=== PATIENT | male | born 1935 | race Caucasian/White ===

== ENCOUNTER 2018-07-31 10:07 | Observation (INO) | payer MEDICARE, BC ==
[2018-07-31] MEDS ORDERED: Diazepam TAB(*) 5 MG ONE (10:56)
[2018-07-31] MEDS ORDERED: diPHENhydraMINE PO* 25 MG ONE (10:56)
[2018-07-31] MEDS ORDERED: Heparin(*) 1000 UNIT/ML 10 ML VIAL CATH LAB IV ONE (11:54)
[2018-07-31] MEDS ORDERED: Midazolam* 1 MG/ML 10 ML VIAL (10 MG) ONE (11:54)
[2018-07-31] MEDS ORDERED: VERAPAMIL 2.5 MG/ML 2 ML VIAL ** 5 mg/2 ml ONE (11:54)
[2018-07-31] MEDS ORDERED: fentaNYL* 50 MCG/ML 2 ML VIAL (100 MCG VIAL) ONE (11:54)
[2018-07-31] MEDS ORDERED: Iohexol 350 (CONTRAST) 200 ML MDV IV ONE ×2 (11:55→12:43)
[2018-07-31] MEDS ORDERED: nitroGLYCERIN DRIP* 25,000 MCG/250 ML BTL ONE (11:55)
[2018-07-31] MEDS ORDERED: Lidocaine 1% INJ* 10 MG/ML 30 ML SDV ONE (11:55)
[2018-07-31] MEDS ORDERED: Heparin 2 UNITS/ML IVPREMIX* 2,000 ML IV ONE (11:55)
[2018-07-31] MEDS ORDERED: Ticagrelor* 90 MG TAB PO ONE (12:45)
[2018-07-31] MEDS ORDERED: Bivalirudin(*) 250 MG VIAL ONE (12:51)
[2018-07-31] MEDS ORDERED: Ondansetron INJ* 2 MG/ML VIAL IV PRN (13:14)
[2018-07-31] MEDS ORDERED: Nitroglycerin TAB 0.4 MG* 0.4 MG TAB SL PRN (13:14)
[2018-07-31] MEDS ORDERED: Docusate CAP* 100 MG PO PRN (13:14)
[2018-07-31] MEDS ORDERED: Acetaminophen TAB* 325 MG PO PRN (13:14)
[2018-07-31] MEDS ORDERED: NS 0.9% 1000 ML* 400 ML IV SCH (13:15)
[2018-07-31] MEDS ORDERED: Ferrous Gluconate TAB* 324 MG TAB PO SCH (14:00)
[2018-07-31] MEDS ORDERED: Docusate CAP* 100 MG PO SCH (18:00)
[2018-07-31] MEDS ORDERED: Citalopram TAB* 10 MG PO SCH (18:00)
[2018-07-31] MEDS: Ticagrelor* 90 MG TAB PO SCH (20:42)
[2018-07-31] MEDS ORDERED: Citalopram TAB* 20 MG PO SCH (21:00)
--- NOTE | 2018-07-31 21:08 | CATH ---
CC: Shiv Chamorro DO, [facility], [facility]; An Dela Cruz MD * INTERVENTIONAL REPORT: DATE OF PROCEDURE: 07/31/18 - ROOM #ICU-12 PROCEDURE AND INDICATION: Primary stenting of the proximal right-sided posterior descending artery utilizing a 3.0 x 16 mm long Synergy drug-eluting stent postdilated to 3.2 mm due to progressive angina pectoris and abnormal stress test despite dual antianginal therapy. I was asked by Dr. Giovanny Johnston who performed the diagnostic cardiac catheterization to perform intervention into the patient's proximal portion of his right posterior descending artery due to the presence of critical stenosis with history of progressive angina pectoris despite multidrug therapy. EQUIPMENT UTILIZED: (Dr. Johnston had performed the diagnostic cardiac catheterization via the right radial artery and an existing 6-Salvadorean sheath was already in place). 1. A guide catheter - 6-Salvadorean IR 1.0 curve guide catheter. 2. Interventional wire - 190 cm BMW. 3. Stent utilized: A 3.0 x 16 mm Synergy drug-eluting stent. 4. Postdeployment balloon inflation catheter - a 3.0 x 12 mm long NC Emerge balloon. ADDITIONAL MEDICATION GIVEN FOR THE INTERVENTIONAL PROCEDURE: ACT was checked and found to be subtherapeutic. As such, an Angiomax bolus and an Angiomax drip was started. The patient received 180 mg of Brilinta orally and already had been on aspirin 81 mg a day for a prolonged period of time and did take it this morning. DESCRIPTION OF PROCEDURE: Guiding views were obtained utilizing the Heartrail III 6-Salvadorean IR 1.0 curve guide catheter. A BMW wire was advanced down the right coronary artery into the distal portion of the right-sided posterior descending artery. Primary stenting was performed utilizing a 3.0 x 16 mm long Synergy drug- eluting stent postdilated to high pressure utilizing a 3.0 x12 mm long NC Emerge balloon. The artery was then assessed in multiple views. At the end of the case, the wire and catheter were removed and hemostasis was obtained with a VascBand. The reverse Barbeau was an A. The total contrast used for the whole case was 135 cc of Omnipaque dye that included the diagnostic portion as well. The radiation exposure included 15.9 minutes of fluoro time. The air kerma radiation was 1601 milligray. The DAP radiation was 9223 microgray per meter square. RESULTS: INTERVENTION INTO PROXIMAL RIGHT POSTERIOR DESCENDING ARTERY - successful reduction of critical 85% stenosis with primary stenting utilizing the 3.0 x 16 mm Synergy drug-eluting stent dilated to high pressures to obtain 3.2 mm with CUAUHTEMOC-3 flow, no dissection seen and less than 5% residual stenosis. A dual antiplatelet therapy is recommended for a minimum of 6 months ' to a year's time. Aggressive risk factor management will be under the guidance of Dr. Shiv Chamorro, the patient's primary vocational technical education teacher. [id number]/[facility] #: [id number] ANNALISA
--- NOTE | 2018-08-01 00:21 | CATH ---
CC: Dr. Shiv Chamorro; Dr. James Ochoa * CARDIAC CATHETERIZATION REPORT: DATE OF PROCEDURE: 07/31/18 - ROOM #ICU-12 PROCEDURE: Cardiac catheterization including left heart catheterization, left ventriculogram, coronary angiography. INDICATION: Crescendo angina, maximum medical therapy, equivocal stress test. HISTORY: The patient is an 83-year-old gentleman who has been having crescendo angina for a number of months. The patient underwent a stress test with Dr. Chamorro which was difficult to interpret because of significant gut attenuation. The patient has been on maximum medical therapy for a couple of weeks with no change in his symptoms. Cardiac catheterization was recommended. DESCRIPTION OF PROCEDURE: The patient was brought to the cardiac catheterization lab in a fasting state. Informed consent had been obtained prior to the procedure, all labs had been reviewed. The patient was placed supine on the catheterization table. The right radial area was prepped and draped in the usual fashion. 1% lidocaine was used for local anesthesia. The right radial artery was prepped and draped in the usual fashion. The radial artery was entered by a modified Seldinger technique and a 6-Omani sheath introducer was placed. The patient underwent left ventriculogram coronary angiography using a 6-Omani pigtail catheter and 6-Omani TIG catheter. At the end of the procedure, the patient went on to angioplasty and stenting of his right coronary artery. Please see Dr. Ochoa's note regarding that procedure. A total of 85 cc of Omnipaque dye was used, a total of 8.3 minutes of fluoro time was used. FINDINGS: Hemodynamics: Central aortic blood pressure 123/54 with a mean of 82. Left ventricular pressure 126/3 with an end-diastolic pressure of 20. Left ventriculogram: Left ventricle is normal in size with systolic function. Estimated ejection fraction was 60%. There was no mitral regurgitation. Aortic valve was normal. Ascending aorta was mildly dilated at 3.9 cm. CORONARY ARTERIES: 1. Right coronary artery: The RCA was a large dominant vessel giving off to the PDA and a posterolateral branch. The RCA and the posterolateral branch were without disease. The PDA had a proximal 90% stenosis. 2. Left main artery: The left main was very short and quickly bifurcated into LAD and circumflex. There was no evidence of stenosis. 3. Left anterior descending artery: The LAD was normal in size. It gave off 3 diagonal vessels. The distal LAD had 40% stenosis. The diagonal 1, 2, and 3 were without disease. 4. Left circumflex artery: The circumflex artery was normal in size. It gave off 3 obtuse marginal branches. There was no evidence of stenosis. IMPRESSION: 1. Normal LV size and systolic function. 2. Mildly to moderately dilated ascending aorta. 3. 90% stenosis to the proximal PDA. RECOMMENDATION: The patient will undergo angioplasty and stenting of his right coronary artery. [id number]/[facility] #: [id number] ANNALISA
[2018-08-01 05:56] LABS: ABS Basophils 0 10^3/ul (0-0.2); ABS Eosinophils 0.1 10^3/ul (0-0.6); ABS Lymphocytes 0.7 10^3/ul (1.0-4.8); ABS Monocytes 0.5 10^3/ul (0-0.8); ABS Neutrophils 4.7 10^3/ul (1.5-7.7); ABS Nucleated RBC 0 10^3/ul; Eosinophil % 1.8 %; Hematocrit 41 % (42-52); Hemoglobin 13.7 g/dl (14.0-18.0); Lymphocyte % 12.2 %; Mean Corpuscular HGB Conc 33 g/dl (31-36); Mean Corpuscular Hemoglobin 30 pg (27-31); Mean Corpuscular Volume 91 fL (80-94); Mean Platelet Volume 7.4 fL (7.4-10.4); Nucleated Red Blood Cells % 0; Platelet Count 159 10^3/ul (150-450); Red Blood Count 4.52 10^6/ul (4.00-5.40); Red Cell Distribution Width 14 % (10.5-15); White Blood Count 6.1 10^3/ul (3.5-10.8)
[2018-08-01] MEDS ORDERED: Levothyroxine TAB* 75 MCG TAB PO SCH (06:00)
[2018-08-01 06:13] LABS: BUN/Creatinine Ratio 15.2 (8-20); Calcium 9.2 mg/dL (8.6-10.3); EGFR Non-African American 62.8 (>60); HDL Cholesterol 63.6 mg/dL; Potassium 4.1 mmol/L (3.5-5.0)
[2018-08-01] MEDS ORDERED: BuPROPion XL* 300 MG TAB.XL PO SCH (09:00)
[2018-08-01] MEDS ORDERED: Isosorbide Mononitrate ER TAB* 30 MG PO SCH (09:00)
[2018-08-01] MEDS ORDERED: Aspirin EC TAB* 81 MG TAB.EC PO SCH (09:00)
[2018-08-01] MEDS ORDERED: amLODIPine TAB* 5 MG PO SCH (09:00)
[2018-08-01] MEDS ORDERED: Atorvastatin* 20 MG TAB PO SCH (09:00)
[2018-08-01] MEDS ORDERED: Ascorbic Acid TAB* 500 MG PO SCH (09:00)
[2018-08-01] MEDS: Ticagrelor* 90 MG TAB PO SCH (09:02)
[2018-08-01 09:12] VITALS: BP 119/61
--- NOTE | 2018-08-01 14:59 | DS ---
DISCHARGE SUMMARY: DATE OF ADMISSION: 07/31/18 DATE OF DISCHARGE: Tentative date of discharge pending no complications, . ATTENDING PHYSICIAN: Dr. Giovanny Johnston, Cardiology * (dictated by Orquidea Mattson , Cardiology STRAW HAT PRESSER). ADMITTING DIAGNOSES: 1. Abnormal stress test with symptomatology consistent with [place] Cardiovascular Society class III angina despite medical therapy, here for elective cardiac catheterization. 2. Presumed coronary artery disease; on aspirin, statin, Norvasc, Imdur therapy. No beta-blockade therapy due to relative bradycardia. 3. History of hyperlipidemia, on statin therapy; goal LDL less than 70. 4. History of syncope and collapse with hypotension/unable to up-titrate amlodipine at this current time. DISCHARGE DIAGNOSES: 1. [place] Cardiovascular Society class III angina with abnormal stress test, 08/06/17, status post drug-eluting stent placement to patent ductus arteriosus; on aspirin 81 mg a day, Brilinta 90 mg p.o. b.i.d., Lipitor 20 mg p.o. q.h.s., Norvasc 2.5 mg p.o. daily, and Imdur therapy. 2. History of coronary artery disease; on aspirin, statin, Brilinta and aspirin therapy. No beta-blockade therapy due to history of relative bradycardia. 3. History of hyperlipidemia, on Lipitor 20 mg p.o. q.h.s. Goal LDL is less than 70. To follow up with Dr. Shiv Chamorro for medication management. 4. History of syncope, unable to up-titrate Norvasc therapy at this current time. PROCEDURES PERFORMED: The patient had a left heart catheterization performed on 07/31/[address] James Ochoa. A 6-Tamazight sheath catheter was previously placed by Dr. Johnston via right radial artery. Left main normal. LAD mid 40% lesion. Left circumflex normal. Right coronary artery proximal PDA 90% stenosis. The patient underwent 3.0 x 16 mm Synergy drug-eluting stent to PDA. Complications, none thus far. HISTORY OF PRESENT ILLNESS: This is a pleasant 83-year-old male, patient of Dr. Shiv Chamorro, who has been previously evaluated in our practice due to complains of exertional chest pain involving lifting bags in addition to exertion. He underwent risk stratification on 06/06/18 via Lexiscan nuclear stress test due to inability to utilize treadmill due to underlying mobility problems. The patient developed chest discomfort with regadenoson. There was mild worsening of baseline ST segment depression with higher heart rate. There was nondiagnostic imaging limited by extensive subdiaphragmatic tracer activity. Stress images revealed moderate-sized, mild-intensity inferior and inferoapical defect of uncertain etiology. He was initiated on medical therapy for presumed cardiovascular disease; however, he continued to have CCS class 3 angina despite medical therapy. Given relative bradycardia and tendency for symptomatic hypotension, there has resulted in syncope in the past, he presented to [facility] on 07/31/18 for elective cardiac catheterization. Prior to having procedure performed, basic blood work was obtained on 07/25/18, white count was 2.9, hemoglobin 12.7, hematocrit 39, platelets 159. INR 0.98. Sodium 141, potassium 4.3, creatinine 1.1. He underwent the above mentioned procedure which resulted in drug-eluting stent placement to PDA. He was imitated on Brilinta 90 mg p.o. b.i.d. in addition to medication regimen that was previously initiated by Dr. Shiv Chamorro. He was evaluated in the ICU overnight. There has been no complications. He has been getting up to the bathroom with complaints of slight lightheadedness, although no syncope. He admits to changing position suddenly. Thus, we will ask the nursing staff to ambulate the patient this morning and evaluate for symptomatic hypotension. He has no tendency for symptomatic hypotension. His right radial axis site was inspected. He has 3+ bilateral radial pulse palpated. Cap refill is less than 3 seconds. There is ecchymosis surrounding the right radial site. It is nontender to palpation. No area of firmness noted. Blood work this morning: White count 6.1, hemoglobin 13.7, hematocrit 41, platelets 159. Sodium 138, potassium 4.1, creatinine 1.1. He is tolerating current medication therapy with no events on telemetry. Pending no complications and his ambulatory status, we will tentatively discharge home later today. DISCHARGE DIET: Low-cholesterol, low-fat diet. ACTIVITY: No driving for 48 hours. No lifting more than 5 to 10 pounds for 7 to 10 days. FOLLOWUP APPOINTMENTS: The patient is to follow up with Dr. Shiv Chamorro as previously instructed on 08/09/18 at 8:15 a.m. He is to follow up with primary care, Dr. An Dela Cruz, in 10 to 14 days. Discharge blood work to be obtained: None. We will send in prescription for Brilinta 90 mg p.o. b.i.d. to [facility], on [address]; otherwise he is to resume prior medications. Dr. Giovanny Johnston agrees with the above assessment and plan. ORQUIDEA MATTSON NP [id number]/[facility] #: [id number] ANNALISA
== END 2018-08-01 10:50 | disposition home or self-care (01) ==
LOC: CHICATH 10:07 → INTOOBSV 13:14 → ICU 13:14
PROVIDERS: ADMIT Internal Medicine Cardiovascular Disease; ATTEND Specialist
DX: I20.9 Angina pectoris, unspecified (principal); E78.5 Hyperlipidemia, unspecified; R55 Syncope and collapse; I25.10 Atherosclerotic heart disease of native coronary artery without angina pectoris; Z79.82 Long term (current) use of aspirin; R07.9 Chest pain, unspecified; R63.6 Underweight; F32.89 Other specified depressive episodes; K59.00 Constipation, unspecified
CPT/HCPCS: 36415; 80048; 80061; 85025; 85347; 87641; 93005; 93458; 96374; 96375; 99156; 99157; A9270-GY; C1769; C1876; C9600-RC; G0378; J0583; J1644; J2250; J3010

== ENCOUNTER 2018-11-12 13:32 | Emergency (ER) | payer MEDICARE, BC ==
--- OUTSIDE RECORDS SUMMARY | 2018-11-12 13:47 | XMS REPORT | Continuity of Care Document ---
:1935 External Reference #:[id number] Author Name Justine Gillette Care Team Providers Name Role Phone An Dela Cruz MD Care Team Information Abrasive Band Winder Unavailable An Dela Cruz MD Primary Care Physician Unavailable Payers Date Identification Numbers Payment Provider Subscriber Policy Number: [id number] Medicare [place] Seth Simpson Raymond PayID: [id number] [address] [place] [address] Expires: 2013 Policy Number: [id number] Medicare Dme Seth Simpson Chary PayID: [id number] [address] [place] [address] Policy Number: [id number] BC/[place] Seth Simpson Raymond Group Number: [id number] [address] [address] PayID: [id number] AMOL Fisher [id number] Advance Directives Description No Information Available Problems Date Description Provider Status Onset: 07/06/2016 Epiretinal membrane Samuel Mccray M.D. Active Onset: 07/01/2015 Open-angle glaucoma - borderline Dayo Conklin O.D. Active Onset: 06/28/2014 Lens Replaced By Other Means Dayo Conklin O.D. Active Onset: 06/28/2014 Dystrophy of anterior cornea Dayo Conklin O.D. Active Onset: 06/28/2014 Presbyopia Dayo Conklin O.D. Active Onset: 06/28/2014 Vitreous degeneration Dayo Conklin O.D. Active Onset: 06/28/2014 Degeneration of macula due to cyst, Dayo Conklin O.D. Active hole or pseudohole Onset: 12/27/2013 Borderline glaucoma Dayo Conklin O.D. Active Family History Date Family Member(s) Observation Comments Father Heart Disease pacemaker Father due to Pneumonia () Father Glasses Mother due to Pneumonia () Mother Glaucoma Mother Glasses Mother Arthritis Mother Thyroid Disease Social History Type Date Description Comments Sex Unknown ETOH Use Occasionally consumed alcohol in the past Tobacco Use Start: Unknown Patient has never smoked Smoking Status Reviewed: 10/16/18 Patient has never smoked Allergies, Adverse Reactions, Alerts Date Description Reaction Status Severity Comments 12/27/2013 NKDA Active 12/27/2013 Seasonal Active Medications Medication Date Status Form Strength Qnty SIG Indications Ordering Provider Fluorometholone 10/16/ Active Suspension 0.1% 10ml 1gtt 2018 three Cash, times a OD day both eyes x 1 week Shaun 128 02/09/ Active Solution 5% 15ml one drop 2017 three Cash, times a OD day both eyes Bupropion HCL ER 00/ Active Tablets ER 300mg Unknown (XL) 0000 24HR Alendronate / Active Tablets 70mg Unknown Sodium 0000 Lactulose / Active Solution 10GM/15ML Unknown 0000 Levothyroxine / Active Tablets 75mcg Unknown Sodium 0000 Citalopram / Active Tablets 10mg Unknown Hydrobromide 0000 Fluticasone / Active Suspension 50mcg/Act instill 1 Unknown Propionate 0000 spray into each nostril once daily or as directed Constulose / Active Solution 10GM/15ML Unknown 0000 Brilinta / Active Tablets 90mg Unknown 0000 Shaun 128 01/26/ Hx Solution 5% 15ml one drop 2017 - three Cash, 02/09/ times a OD 2018 day both eyes Restasis 12/27/ Hx Emulsion 0.05% 180Vi 1 drops 2013 - als both eyes Rubin, 07/01/ twice a O.D. 2014 day Immunizations Description No Information Available Vital Signs Date Vital Result Comment 01/25/2018 8:58am Intraocular Pressure Right Eye 15 mmHg Intraocular Pressure Left Eye 16 mmHg 07/06/2016 1:18pm Intraocular Pressure Right Eye 18 mmHg Intraocular Pressure Left Eye 22 mmHg 07/01/2015 10:43am Intraocular Pressure Right Eye 15 mmHg Intraocular Pressure Left Eye 18 mmHg 12/27/2014 11:18am Intraocular Pressure Right Eye 12 mmHg Intraocular Pressure Left Eye 20 mmHg 06/28/2014 11:10am Intraocular Pressure Right Eye 13 mmHg Intraocular Pressure Left Eye 17 mmHg 12/27/2013 10:41am Intraocular Pressure Right Eye 13 mmHg Intraocular Pressure Left Eye 20 mmHg Results Description No Information Available Procedures Date Code Description Status 01/25/2018 81170 Oct Retina Completed 01/25/2018 47074 Refraction Completed 01/25/2018 09980 Eye Exam Est Intermediate Completed 07/06/2016 85456 Ophthalmoscopy Subsequent Completed 07/06/2016 79214 Oct Retina Completed 07/06/2016 31585 Eye Exam Est Comprehensive Completed 07/01/2015 98251 Ophthalmoscopy Subsequent Completed 07/01/2015 70231 Refraction Completed 07/01/2015 07907 Eye Exam Est Comprehensive Completed 12/27/2014 17151 Oct, Optic Nerve Completed 12/27/2014 63040 Eye Exam Est Intermediate Completed 06/28/2014 86387 Fundus Photography W/Interpretation & Report Completed 06/28/2014 73778 Eye Exam Est Comprehensive Completed 12/27/2013 26400 Eye Exam Est Intermediate Completed 12/27/2013 25097 Visual Field Exam Extended, Unilateral Or Bilateral Completed 12/07/2010 17842 Fundus Photography W/Interpretation & Report Completed 12/07/2010 29769 Refraction Completed 12/07/2010 48494 Eye Exam Est Comprehensive Completed 12/26/2009 85346 Fundus Photography W/Interpretation & Report Completed 12/26/2009 08509 Refraction Completed 12/26/2009 43556 Eye Exam Est Comprehensive Completed 12/20/2008 91994 Eye Exam Est Intermediate Completed 04/29/2008 50608 Extracapsular Cataract Removal W/Insertion Of Intraocular Completed Lens pr 04/23/2008 12915 Ophthalmic Biometry By Partial Coherence Interferometry Completed W/Intra 04/22/2008 32516 Extracapsular Cataract Extraction W/Intraocular Lens Completed 02/15/2008 07344 Ophthalmoscopy Initial Completed 02/15/2008 95842 Ophthalmic Biometry By Partial Coherence Interferometry Completed W/Intra 02/15/2008 32903 Eye Exam New Comprehensive Completed Encounters Type Date Location Provider Dx Diagnosis Office Visit 02/09/2018 Main Office Dayo Cash, OD 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
--- OUTSIDE RECORDS SUMMARY | 2018-11-12 13:47 | XMS REPORT | Continuity of Care Document ---
:1935 External Reference #:[id number] Author Name Dafne eWi Care Team Providers Name Role Phone An Dela Cruz MD Primary Care Physician Unavailable Payers Date Identification Numbers Payment Provider Subscriber Effective: 2001 Policy Number: [id number] Medicare Seth Chary PayID: [id number] [address] [place] [address] Effective: 2014 Policy Number: [id number] [employer]ets Seth Chary PayID: [id number] [address] [address] [place] [address] Advance Directives Description No Information Available Problems Date Description Provider Status Onset: 07/30/2015 Derangement of knee Tico Clemente M.D. Active Onset: 07/30/2015 Localized, primary osteoarthritis Tico Clemente M.D. 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 Tobacco Use Start: Unknown Never Smoked Cigarettes Smoking Status Reviewed: 10/24/18 Never Smoked Cigarettes ETOH Use Denies alcohol use Tobacco Use Start: Unknown Patient has never smoked Recreational Drug Use Denies Drug Use Exercise Type/Frequency Exercises sporadically Walks every day when the weather permits Allergies, Adverse Reactions, Alerts Date Description Reaction Status Severity Comments 05/17/2018 Lactose excessive gas Active 05/17/2018 Gluten Active 07/30/2015 NKDA Inactive Medications Medication Date Status Form Strength Qnty SIG Indications Ordering Provider Atorvastatin 08/25 Active Tablets 40mg 90tab 1 by mouth E78.5 Shiv Arevalo Calcium /2019 s every day DO Pedro Pablo FACC Brilinta 08/01 Active Tablets 90mg 180ta 1 tab by Shiv Arevalo /2018 bs mouth twice Chamorro, DO a day FAC Aspirin Adult 06/[address] 81mg 100ta 1 by mouth Shiv Arevalo Low Dose /2017 bs every day Chamorro, DO FAC Amlodipine 06/14 Active Tablets 2.5mg 90tab 1 by mouth Shiv Arevalo Besylate /2017 s every day Chamorro, DO [facility] Mandibular 08/11 Active Device 1unit fabricate G47.33 Shy Advancement /2017 s oral Haq, Device appliance DNP, RN, /mandibular CONTENT STRATEGY LEAD-BC advancement device for sleep apnea with needed adjustments. Citalopram Active Solution 10mg 2 qpm Unknown Hydrobromide / Levothyroxine Active Tablets 75mcg 1 by mouth Unknown Sodium / every day PM Alendronate Active Tablets 70mg 1 by mouth Unknown Sodium / weekly on Tuesday Fluticasone Active Suspension 50mcg/Act 2 sprays Unknown Propionate / each nostril daily as needed Citracal +D3 Active Chewtabs 250-107-5 2 bid Unknown / 00mg-mg-U nit Vitamin C Active Capsules 500mg 1 by mouth Unknown /0000 every day Am Ferrous Active Tablets 324(38Fe) 1 tablet by Unknown Gluconate /0000 mg mouth three times a week on days Tue, Tue, Tue Lactaid Active Tablets prn Unknown /0000 Stool Softener Active Capsules 100mg 1 by mouth Unknown / qpm Mucinex Active Tablets ER 600mg 1 by mouth Unknown /0000 12HR daily as needed Refresh Active Solution 1 gtt both Unknown /0000 eyes three times daily Ra Ophthalmic Active Solution 5% instill 1 Unknown /0000 drop into both eyes three times a day Bupropion HCL Active Tablets ER 150mg 2 tablet by Unknown ER (XL) /0000 24HR mouth every day Atorvastatin 06/27 Hx Tablets 20mg 30tab 1 by mouth E78.5 Shiv Arevalo Calcium /2017 s every day DO Pedro Pablo - [facility] 08/25 Isosorbide 06/27 Hx Tablets ER 30mg 30tab 1 by mouth I20.9 Shiv Arevalo Mononitrate ER /2017 24HR s every day DO Pedro Pablo - [facility] 08/09 Enulose Hx Solution 10GM/15ML 30gm as Unknown /0000 needed daily - for 05/30 Bupropion HCL Hx Tablets ER 150mg 2 by mouth a Unknown ER (SR) /0000 12HR day - 04/18 Benefiber 00 Hx Powder 1 tb with 8 Unknown /0000 oz of water - daily in the 05/30 in the morning Multiple Hx Tablets 1 by mouth Unknown Vitamin /0000 every day - 06/26 Medications Administered in Office Medication Date Status Form Strength Qnty SIG Indications Ordering Provider Inj, Administered Injection Shiv S. Regadenoson, 018 DO Pedro Pablo 0.1 MG FACC Technetium TC Administered Injection Shiv S. 99M 018 DO Pedro Pablo Tetrofosmin, FACC Per Unit Dose Up To 40 Millicuries Depomedrol Administered Injection Britney 80MG Javier Mera M.D. Depomedrol Administered Injection Britney 80MG Javier Mera M.D. Immunizations Description No Information Available Vital Signs Date Vital Result Comment 10/24/2018 10:27am Height 71 inches 5'11" Weight 132.38 lb Heart Rate 62 /min BP Systolic Sitting 112 mmHg reg adult cuff BP Diastolic Sitting 68 mmHg reg adult cuff Respiratory Rate 16 /min O2 % BldC Oximetry 95 % at rest on room air BMI (Body Mass Index) 18.5 kg/m2 08/25/2018 1:23pm Height 71 inches 5'11" Weight 141.00 lb w/o shoes Heart Rate 68 /min irrg BP Systolic Sitting 120 mmHg Lue reg cuff BP Diastolic Sitting 65 mmHg Lue reg cuff BP Systolic Standing 125 mmHg Lue reg cuff BP Diastolic Standing 70 mmHg Lue reg cuff Respiratory Rate 16 /min BMI (Body Mass Index) 19.7 kg/m2 Ejection Fraction 60-65% 05/02/14 echo 08/09/2018 8:23am Height 71 inches 5'11" Weight 130.00 lb Heart Rate 76 /min BP Systolic Sitting 108 mmHg lue reg cuff BP Diastolic Sitting 58 mmHg lue reg cuff BP Systolic Standing 110 mmHg lue reg cuff BP Diastolic Standing 58 mmHg lue reg cuff Respiratory Rate 14 /min BMI (Body Mass Index) 18.1 kg/m2 07/19/2018 11:05am Height 71 inches 5'11" Weight 135.50 lb with sneakers Heart Rate 51 /min BP Systolic Sitting 110 mmHg lue reg cuff BP Diastolic Sitting 58 mmHg lue reg cuff BP Systolic Standing 130 mmHg lue reg cuff BP Diastolic Standing 60 mmHg lue reg cuff BMI (Body Mass Index) 18.9 kg/m2 06/27/2018 9:55am Height 71 inches 5'11" Weight 135.00 lb with shoes Heart Rate 54 /min BP Systolic Sitting 120 mmHg lue reg cuff BP Diastolic Sitting 70 mmHg lue reg cuff BP Systolic Standing 120 mmHg lue reg cuff BP Diastolic Standing 64 mmHg lue reg cuff Respiratory Rate 16 /min BMI (Body Mass Index) 18.8 kg/m2 05/17/2018 2:39pm Height 71 inches 5'11" Weight 134.00 lb with shoes Heart Rate 54 /min BP Systolic 114 mmHg Rue reg cuff BP Diastolic 60 mmHg Rue reg cuff BP Systolic Sitting 114 mmHg Lue reg cuff BP Diastolic Sitting 70 mmHg Lue reg cuff BP Systolic Standing 120 mmHg lue reg cuff BP Diastolic Standing 70 mmHg lue reg cuff Respiratory Rate 16 /min BMI (Body Mass Index) 18.7 kg/m2 04/14/2018 3:41pm Heart Rate 60 /min BP Systolic Sitting 102 mmHg BP Diastolic Sitting 64 mmHg Respiratory Rate 16 /min Body Temperature 98.7 F 11/08/2017 1:42pm Height 70 inches 5'10" Weight 128.00 lb Heart Rate 54 /min BP Systolic Sitting 126 mmHg Lue reg cuff BP Diastolic Sitting 66 mmHg Lue reg cuff Respiratory Rate 20 /min O2 % BldC Oximetry 96 % On Ra BMI (Body Mass Index) 18.4 kg/m2 08/11/2017 1:07pm Height 70 inches 5'10" Weight 129.00 lb Heart Rate 60 /min BP Systolic Sitting 118 mmHg BP Diastolic Sitting 68 mmHg Respiratory Rate 14 /min O2 % BldC Oximetry 98 % BMI (Body Mass Index) 18.5 kg/m2 05/31/2017 8:43am Height 70 inches 5'10" Weight 127.00 lb Heart Rate 60 /min BP Systolic Sitting 112 mmHg BP Diastolic Sitting 74 mmHg Respiratory Rate 14 /min O2 % BldC Oximetry 96 % BMI (Body Mass Index) 18.2 kg/m2 Neck Circumference in inches 13.5 09/01/2016 2:41pm Height 70 inches 5'10" Weight 134.00 lb Heart Rate 64 /min BP Systolic 138 mmHg BP Diastolic 70 mmHg Respiratory Rate 16 /min Body Temperature 95.7 F BMI (Body Mass Index) 19.2 kg/m2 08/18/2016 2:22pm Height 71 inches 5'11" Weight 134.00 lb Heart Rate 60 /min BP Systolic 116 mmHg BP Diastolic 70 mmHg Respiratory Rate 16 /min Body Temperature 97.7 F BMI (Body Mass Index) 18.7 kg/m2 09/17/2015 11:41am Height 71 inches 5'11" Weight 132.00 lb Pain Level 4 BMI (Body Mass Index) 18.4 kg/m2 07/30/2015 9:21am Height 71 inches 5'11" Weight 132.00 lb Heart Rate 56 /min BP Systolic 124 mmHg BP Diastolic 69 mmHg BMI (Body Mass Index) 18.4 kg/m2 Results Test Date Facility Test Result H/L Range Note Cath Panel 07/25/2018 [facility] Partial 30.5 seconds N 26.0- 36.[address] [place] [address] PTT [phone] CBC Auto Diff 07/25/2018 [facility] White Blood 3.9 10^3/uL N 3.5-10.[address] [place] [address] [phone] Red Blood Count 4.21 10^6/uL N 4.00-5.40 Hemoglobin 12.7 g/dL Low 14.0-18.0 Hematocrit 39 % Low 42-52 Mean Corpuscular Volume 92 fL N 80-94 Mean Corpuscular Hemoglobin 30 pg N 27-31 Mean Corpuscular HGB Conc 33 g/dL N 31-36 Red Cell Distribution Width 14 % N 10.5-15 Platelet Count 159 10^3/uL N 150-450 Mean Platelet Volume 7.7 fL N 7.4-10.4 Abs Neutrophils 2.6 10^3/uL N 1.5-7.7 Abs Lymphocytes 0.8 10^3/uL Low 1.0-4.8 Abs Monocytes 0.3 10^3/uL N 0-0.8 Abs Eosinophils 0.1 10^3/uL N 0-0.6 Abs Basophils 0 10^3/uL N 0-0.2 Abs Nucleated RBC 0 10^3/uL Granulocyte % 67.2 % Lymphocyte % 20.1 % Monocyte % 8.8 % Eosinophil % 3.0 % Basophil % 0.9 % Nucleated Red Blood Cells % 0.1 Inr/Protime 07/25/2018 [facility] Inr 0.98 N 0.77-1.[address] [place] [address] [phone] Basic Metabolic 07/25/2018 [facility] Sodium 141 mmol/L N 135- [address] [place] [address] [phone] Potassium 4.3 mmol/L N 3.5-5.0 Chloride 105 mmol/L N 101-111 Co2 Carbon Dioxide 30 mmol/L N 22-32 Anion Gap 6 mmol/L N 2-11 Glucose 54 mg/dL Low 70-100 Blood Urea Nitrogen 16 mg/dL N 6-24 Creatinine 1.11 mg/dL N 0.67-1.17 BUN/Creatinine Ratio 14.4 N 8-20 Calcium 8.9 mg/dL N 8.6-10.3 Egfr Non- 63.4 >60 Egfr 76.7 >60 1 1 Because ethnic data is not always readily available, this report includes an eGFR for both -Americans and non- Americans. The National Kidney Disease Education Program (NKDEP) does not endorse the use of the MDRD equation for patients that are not between the ages of 18 and 70, are , have extremes of body size, muscle mass, or nutritional status, or are non- or non-. According to the National Kidney Foundation, irrespective of diagnosis, the stage of the disease is based on the level of kidney function: Stage Description GFR(mL/min/1.73 m(2)) 1 Kidney damage with normal or decreased GFR 90 2 Kidney damage with mild decrease in GFR 60-89 3 Moderate decrease in GFR 30-59 4 Severe decrease in GFR 15-29 5 Kidney failure <15 (or dialysis) Procedures Date Code Description Status 07/31/2018 60169 Left Heart Cath. Incl S/I Coronaries, Angio S/I V Gram If Completed Done 07/31/2018 71382 Percutaneous Transcatheter Placement Of Intracoronary Completed Stent 06/14/2018 22865 Stress Test Completed 06/14/2018 61021 Myocardial Perfusion Imaging Tomographic (Spect) Multiple Completed Studies 05/17/2018 92115 EKG Tracing & Interpretation Completed 04/14/2018 14331 Anoscopy Completed 03/28/2018 97007 Holter Monitor Review (24 hr)dr review & interp only Completed 03/22/2018 90776 ECG Monitor/Recording W/Visual Superimposition Scanning Completed 06/22/2017 97188 Polysomnography Sleep Staging 4+ Parameters Completed 09/01/2016 91118 Hemorrhoidectomy, Internal, By Rubber Band Ligation(S) Completed 08/18/2016 78771 Anoscopy Completed 05/15/2014 66256 Cardiac Event Monitor Completed 05/02/2014 20033 ECHO Transthorasic Realtime 2D W Doppler & Color Flow Hosp Completed 09/07/2012 29399 Rad Exam; Elbow, Limited Completed 09/07/2012 Injection Single Tendon Origin/Insertion Completed 09/07/2012 Injection Single Tendon Origin/Insertion Completed 09/07/2012 Injection Single Tendon Origin/Insertion Completed Encounters Type Date Location Provider Dx Diagnosis Office Visit 08/25/2018 [facility] Shiv Chamorro, Z98.61 Coronary 1:40p Of [facility] DO FACC angioplasty status I25.83 Coronary atherosclerosis due to lipid rich plaque E78.5 Hyperlipidemia, unspecified Office Visit 08/09/2018 8:30a [facility] Giovanny Martinez I25.110 [facility] Of Jerzy Johnston M.D. disease of [place] cor art w unstable ang pctrs Z98.61 Coronary angioplasty status Office Visit 07/19/2018 11:20a [facility] Shiv Arevalo I20.9 Angina pectoris, Of [employer] Chamorro, DO unspecified FACC E78.5 Hyperlipidemia, unspecified R63.6 Underweight R55 Syncope and collapse F32.89 Other specified depressive episodes K59.00 Constipation, unspecified Office Visit 06/27/2018 10:00a [facility] Shiv Arevalo I20.9 Angina pectoris, Of [employer] Chamorro, DO unspecified FACC E78.5 Hyperlipidemia, unspecified R63.6 Underweight R55 Syncope and collapse F32.89 Other specified depressive episodes K59.00 Constipation, unspecified Office Visit 05/17/2018 3:00p [facility] Shiv Arevalo I20.9 Angina pectoris, Of [facility] DO Pedro Pablo unspecified FACC F32.89 Other specified depressive episodes R63.6 Underweight R55 Syncope and collapse Office Visit 04/14/2018 [place] Arevalo R19.7 Diarrhea, 3:30p [facility] MD Fortunato unspecified Office Visit 11/08/2017 [facility] And Shy Haq G47.33 Obstructive sleep 1:45p [facility] P[facility], ESAU-CARIDAD apnea (adult) [facility] (pediatric) Office Visit 08/24/2017 [facility] Dermatology Mohit Crowder MD L24.9 Irritant contact 9:00a dermatitis, unspecified cause Office Visit 08/11/2017 [facility] Shy Haq G47.33 Obstructive sleep 1:00p [facility], ALEXANDER apnea (adult) [facility] (pediatric) R09.02 Hypoxemia Office Visit 05/31/2017 8:45a [facility] And Kasia G47.33 Obstructive sleep [facility] MD Jan apnea (adult) [facility] (pediatric) 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 knee M17.11 Unilateral primary osteoarthritis, right knee Office Visit 05/02/2014 3:31p [facility] Leonid 780.2 [facility] 244.9 Hypothyroidism Other Unspec Office Visit 09/07/2012 Orthopedic Britney 726.32 Epicondylitis 1:15p [facility] Mera Lateral C.M.A. 726.32 Epicondylitis Lateral Plan of Treatment Future Appointment(s):12/27/2018 10:30 am - Shy Haq DNP, RN, CONTENT STRATEGY LEAD-CARIDAD at [facility]11/29/2018 1:40 pm - Shiv Chamorro DO FAC at [facility]10/24/2018 - Shy Haq DNP, RN, CONTENT STRATEGY LEAD- BCG47.33 Obstructive sleep apnea (adult) (pediatric)New Orders:Sleep Study, Ordered: 10/24/18Comments:2008 NPSG Mild AHI 2.1, tRDI 11.6, chao oxygen 89% NPSG AHI 6.8/hour, tRDI 32.2/hour, nadiroxygen 93%, hx of oral appliance/ mandibular device unable to use current one. He prefers supine sleep.Follow up: 2 monthsRecommendations:Sleep apnea to resume positional therapy. Review of sleep studies in detail. Weight loss and terminal gauger use of oral appliance/ mandibular device, unable to sustain non-supine sleep and use of oral appliance/ mandibular device. Recommend in-lab NPSG to help guide treatment decisions. Call [phone] a week after study to discuss treatment options. Risks of untreated sleep apnea including cardiovascular events: rhythm irregularities, heart attack, stroke; gastro esophageal reflux disease (GERD); diabetes; anxiety , depression; high blood pressure; accidents (machinery and automobile) Recommendation for PAP other treatment modalities NON-PAP including oral appliance/mandibular advancement device,and positional strategies. If you have any further questions, please call the [facility] at [phone].
--- OUTSIDE RECORDS SUMMARY | 2018-11-12 13:47 | XMS REPORT | Continuity of Care Document ---
:1935 External Reference #:[id number] Author Name Dafne Wei Care Team Providers Name Role Phone An Dela Cruz MD Primary Care Physician Unavailable Payers Date Identification Numbers Payment Provider Subscriber Effective: 2001 Policy Number: [id number] Medicare Seth Dunbar PayID: [id number] [address] [place] [address] Effective: 2014 Policy Number: [id number] [employer] Seth Dunbar PayID: [id number] [address] [address] [place] [address] Advance Directives Description No Information Available Problems Active Problems Provider Date Derangement of knee Tico Clemente M.D. Onset: 07/30/2015 Localized, primary osteoarthritis Tico Clemente M.D. 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 Tobacco Use Start: Unknown Never Smoked Cigarettes Smoking Status Reviewed: 11/10/18 Never Smoked Cigarettes ETOH Use Denies alcohol use Tobacco Use Start: Unknown Patient has never smoked Recreational Drug Use Denies Drug Use Exercise Type/Frequency Exercises sporadically Walks every day when the weather permits Allergies, Adverse Reactions, Alerts Active Allergies Reaction Severity Comments Date Lactose excessive gas 05/17/2018 Gluten 05/17/2018 Inactive Allergies NKDA 07/30/2015 Medications Active Medications SIG Qnty Indications Ordering Date Provider Atorvastatin Calcium 1 by mouth every 90tabs E78.5 Shiv Chamorro, 2018 day DO [facility] 40mg Tablets Brilinta 1 tab by mouth 180tabs Shiv Chamorro, 08/01/2018 90mg Tablets twice a day DO [facility] Aspirin Adult Low 1 by mouth every 100tabs Shiv Chamorro, 06/14/2018 Dose day DO [facility] 81mg Tablets DR Amlodipine Besylate 1 by mouth every 90tabs Shiv Chamorro, 06/14/2018 day DO [facility] 2.5mg Tablets Mandibular fabricate oral 1units G47.33 Shy Haq, 08/11/2017 Advancement Device appliance DNP, RN, [facility] /mandibular Device advancement device for sleep apnea with needed adjustments. Bupropion HCL ER 2 tablet by mouth Unknown (XL) every day 150mg Tablets ER 24HR Ra Ophthalmic instill 1 drop Unknown 5% into both eyes Solution three times a day Refresh 1 gtt both eyes Unknown Solution three times daily Mucinex 1 by mouth daily Unknown 600mg Tablets as needed ER 12HR Stool Softener 1 by mouth qpm Unknown 100mg Capsules Lactaid prn Unknown Tablets Ferrous Gluconate 1 tablet by mouth Unknown three times a week 324(38Fe) mg Tablets on days Tue, Wed, Tue Vitamin C 1 by mouth every Unknown 500mg day Am Capsules Citracal +D3 2 bid Unknown [id number]-mg-Uni t Chewtabs Fluticasone 2 sprays each Unknown Propionate nostril daily as 50mcg/Act needed Suspension Alendronate Sodium 1 by mouth weekly Unknown on Tuesday 70mg Tablets Levothyroxine Sodium 1 by mouth every Unknown day PM 75mcg Tablets Citalopram 2 qpm Unknown Hydrobromide 10mg Solution History Medications Atorvastatin Calcium 1 by mouth every day 30tabs E78.5 Shiv Arevalo 2017 - Pedro Pablo, DO [facility] 08/25/2018 20mg Tablets Isosorbide 1 by mouth every day 30tabs I20.9 Shiv Arevalo 06/27/2018 - Mononitrate ER Pedro Pablo DO [facility] 08/09/2018 30mg Tablets ER 24HR Enulose 30gm as needed daily Unknown - 10GM/15ML for constipation 05/30/2017 Solution Bupropion HCL ER 2 by mouth a day Unknown - (SR) 04/18/2018 150mg Tablets ER 12HR Benefiber 1 tb with 8 oz of Unknown - Powder water daily in the 05/30/2017 in the morning Multiple Vitamin 1 by mouth every day Unknown - 2018 Tablets Medications Administered in Office Medication SIG Qnty Indications Ordering Provider Date Inj, Regadenoson, 0.1 MG Shiv Chamorro, DO [facility] 06/14/2018 Injection Technetium TC 99M Shiv Chamorro, DO [facility] 06/14/2018 Tetrofosmin, Per Unit Dose Up To 40 Millicuries Injection Depomedrol 80MG Britney Mera M.D. 09/07/2012 Injection Depomedrol 80MG Britney Mera M.D. 09/07/2012 Injection Immunizations Description No Information Available Vital Signs Date Vital Result Comment 11/10/2018 2:56pm Height 71 inches 5'11" Weight 130.00 lb Heart Rate 62 /min BP Systolic Sitting 110 mmHg left upper arm regular cuff BP Diastolic Sitting 58 mmHg left upper arm regular cuff Respiratory Rate 12 /min O2 % BldC Oximetry 97 % BMI (Body Mass Index) 18.1 kg/m2 10/24/2018 10:27am Height 71 inches 5'11" Weight [...] Result H/L Range Note Cath Panel 07/25/2018 [facility] Partial 30.5 seconds N 26.0- 36.[address] [place] [address] PTT [phone] CBC Auto Diff 07/25/2018 [facility] White Blood 3.9 10^3/uL N 3.5-10.[address] [place] [address] [phone] Red Blood Count 4.21 10^6/uL N 4.00-5.40 [...] Red Blood Cells % 0.1 Inr/Protime 07/25/2018 [facility] Inr 0.98 N 0.77-1.02 [address] [place] [address] [phone] Basic Metabolic 07/25/2018 [facility] Sodium 141 mmol/L N 135- 145 Panel [address] [place] [address] [phone] Potassium 4.3 mmol/L N 3.5-5.0 Chloride 105 [...] dialysis) Procedures Date Code Description Status 07/31/2018 08926 Left Heart Cath. Incl S/I Coronaries, Angio S/I V Gram If Completed Done 07/31/2018 42693 Percutaneous Transcatheter Placement Of Intracoronary Completed Stent 06/14/2018 61557 Stress Test Completed 06/14/2018 66617 Myocardial Perfusion Imaging Tomographic (Spect) Multiple Completed Studies 05/17/2018 50053 EKG Tracing & Interpretation Completed 04/14/2018 72817 Anoscopy Completed 03/28/2018 09687 Holter Monitor Review (24 hr)dr review & interp only Completed 03/22/2018 69459 ECG Monitor/Recording W/Visual Superimposition Scanning Completed 06/22/2017 49794 Polysomnography Sleep Staging 4+ Parameters Completed 09/01/2016 16721 Hemorrhoidectomy, Internal, By Rubber Band Ligation(S) Completed 08/18/2016 28933 Anoscopy Completed 05/15/2014 08853 Cardiac Event Monitor Completed 05/02/2014 78018 ECHO Transthorasic Realtime 2D W Doppler & Color Flow Hosp Completed 09/07/2012 77566 Rad Exam; Elbow, Limited Completed 09/07/201207402 Injection Single Tendon Origin/Insertion Completed 09/07/201244537 Injection Single Tendon Origin/Insertion Completed 09/07/2012 Injection Single Tendon Origin/Insertion Completed Encounters Type Date Location Provider Dx Diagnosis Office Visit 11/10/2018 [facility] Britney G47.33 Obstructive sleep 3:00p [facility] [place] Eche[facility] apnea (adult) [facility] (pediatric) 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 Office Visit 10/24/2018 [facility] Shy G47.33 Obstructive sleep 10:30a [facility] Haq, RN, apnea (adult) [facility]- (pediatric) Office Visit 08/25/2018 [facility] Shiv Arevalo Z98.61 Coronary 1:40p Of Jerzy Chamorro DO FACC angioplasty status I25.83 Coronary atherosclerosis due to lipid rich plaque E78.5 Hyperlipidemia, unspecified Office Visit 08/09/2018 8:30a [facility] Giovanny Martinez I25.110 [facility] Johnston M.D. disease of sokaogon cor art w unstable ang pctrs Z98.61 Coronary angioplasty status Office Visit 07/19/2018 11:20a [facility] Shiv S. I20.9 Angina pectoris, Of [facility] Chamorro, DO unspecified FACC E78.5 Hyperlipidemia, unspecified R63.6 Underweight R55 Syncope and collapse F32.89 Other specified depressive episodes K59.00 Constipation, unspecified Office Visit 06/27/2018 10:00a [facility] Shiv S. I20.9 Angina pectoris, Of [facility] Chamorro, DO unspecified FACC E78.5 Hyperlipidemia, unspecified R63.6 Underweight R55 Syncope and collapse F32.89 Other specified depressive episodes K59.00 Constipation, unspecified Office Visit 05/17/2018 3:00p [facility] Shiv S. I20.9 Angina pectoris, Of [facility] Chamorro, DO unspecified FACC F32.89 Other specified depressive episodes R63.6 Underweight R55 Syncope and collapse Office Visit 04/14/2018 [facility] Arevalo R19.7 Diarrhea, 3:30p [facility] MD Fortunato unspecified Office Visit 11/08/2017 [facility] Shy Haq G47.33 Obstructive sleep 1:45p [facility] P[facility] FNP-BC apnea (adult) [facility] (pediatric) Office Visit 08/24/2017 [facility] Dermatology Mohit Crowder MD L24.9 Irritant contact 9:00a dermatitis, unspecified cause Office Visit 08/11/2017 [facility] Shy Haq G47.33 Obstructive sleep 1:00p [facility] FNP-BC apnea (adult) [facility] (pediatric) R09.02 Hypoxemia Office Visit 05/31/2017 8:45a [facility] Kasia G47.33 Obstructive sleep [facility] Jan apnea (adult) [facility] (pediatric) 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 knee M17.11 Unilateral primary osteoarthritis, right knee Office Visit 05/02/2014 [facility]p [facility] 244.9 Hypothyroidism Other Unspec Office Visit 09/07/2012 Orthopedic Britney 726.32 Epicondylitis 1:15p [facility] [place] Mera Lateral .MRoland 726.32 Epicondylitis Lateral Plan of Treatment Future Appointment(s):12/26/2018 10:00 am - Britney Echeverria NP at [facility]11/29/2018 1:40 pm - Shiv Chamorro DO FACC at [facility]11/10/2018 - Britney Echeverria NPG47.33 Obstructive sleep apnea (adult) (pediatric)Follow up:6 weeksRecommendations:You will be set up with a new auto BiPAP through [facility] [employer]. They will call you to set up an appointment to warehouse picker your machine and get fit with a mask. If you have difficulty with your equipment, or need to replace your mask or hoses, please contact your homecare agency. 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
--- OUTSIDE RECORDS SUMMARY | 2018-11-12 13:47 | XMS REPORT | Continuity of Care Document ---
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 Unavailable An Dela Cruz MD Primary Care Physician Unavailable Payers Date Identification Numbers Payment Provider Subscriber Policy Number: [id number] Medicare [place] Seth C Chary PayID: [id number] [address] [place] [address] Expires: 2013 Policy Number: [id number] Medicare Dme Seth Simpson Chary PayID: [id number] [address] [place] [address] Policy Number: [id number] / [employer] [employer] Seth Simpson [employer] Number: [id number] [address] PayID: [id number] AMOL Fisher [id number] Advance Directives Description No Information Available Problems Active Problems Provider Date Epiretinal membrane Samuel Mccray M.D. Onset: 07/06/2016 Open-angle glaucoma - borderline Dayo Conklin O.D. Onset: 07/01/2015 Lens Replaced By Other Means Dayo Conklin O.D. Onset: 06/28/2014 Dystrophy of anterior cornea Dayo Conklin O.D. Onset: 06/28/2014 Presbyopia Dayo Conklin O.D. Onset: 06/28/2014 Vitreous degeneration Dayo Conklin O.D. Onset: 06/28/2014 Degeneration of macula due to cyst, hole or Dayo Conklin O.D. Onset: 06/28 pseudohole Borderline glaucoma Dayo Conklin O.D. Onset: 12/27/2013 Family History Date Family Member(s) Observation Comments General Glaucoma General Glasses General High BP Father Heart Disease pacemaker Father due to Pneumonia () Father Glasses Mother due to Pneumonia () Mother Glaucoma Mother Glasses Mother Arthritis Mother Thyroid Disease Social History Type Date Description Comments Sex Unknown ETOH Use Occasionally consumed alcohol in the past Tobacco Use Start: Unknown Patient has never smoked Smoking Status Reviewed: 10/30/18 Patient has never smoked Allergies, Adverse Reactions, Alerts Active Allergies Reaction Severity Comments Date NKDA 12/27/2013 Seasonal 12/27/2013 Medications Active Medications SIG Qnty Indications Ordering Provider Date Shaun 128 one drop three 15ml Dayo Cash, OD 02/09/2018 5% Solution times a day both eyes Bupropion HCL ER (XL) Unknown 300mg Tablets ER 24HR Alendronate Sodium Unknown 70mg Tablets Lactulose Unknown 10GM/15ML Solution Levothyroxine Sodium Unknown 75mcg Tablets Citalopram Hydrobromide Unknown 10mg Tablets Fluticasone Propionate instill 1 spray Unknown into each nostril 50mcg/Act Suspension once daily or as directed Constulose Unknown 10GM/15ML Solution Brilinta Unknown 90mg Tablets History Medications Fluorometholone 1gtt bid OD x 2 10ml Dayo Cash, 10/16/2018 - 0.1% weeks, then d/c OD 10/16/2018 Suspension Fluorometholone 1gtt bid OD x 2 10ml Dayo Cash, 10/16/2018 - 0.1% weeks, then d/c OD 10/30/2018 Suspension Shaun 128 one drop three 15ml Dayo Cash, 01/26/2018 - 5% Solution times a day OD 02/09/2018 both eyes Restasis 1 drops both 180Vials Dayo Conklin, 12/27/2013 - 0.05% Emulsion eyes twice a O.D. 07/01/2015 day Immunizations Description No Information Available Vital Signs Date Vital Result Comment 10/30/2018 3:41pm Intraocular Pressure Right Eye 16 mmHg 10/16/2018 3:33pm Intraocular Pressure Right Eye 16 mmHg 01/25/2018 8:58am Intraocular Pressure Right Eye 15 [...] Available Procedures Date Code Description Status 01/25/2018 58169 Oct Retina Completed 01/25/2018 31181 Refraction Completed 01/25/2018 78683 Eye Exam Est Intermediate Completed 07/06/2016 24581 Ophthalmoscopy Subsequent Completed 07/06/2016 45198 Oct Retina Completed 07/06/2016 54862 Eye Exam Est Comprehensive Completed 07/01/2015 36159 Ophthalmoscopy Subsequent Completed 07/01/2015 89399 Refraction Completed 07/01/2015 42448 Eye Exam Est Comprehensive Completed 12/27/2014 26057 Oct, Optic Nerve Completed 12/27/2014 73106 Eye Exam Est Intermediate Completed 06/28/2014 30566 Fundus Photography W/Interpretation & Report Completed 06/28/2014 06401 Eye Exam Est Comprehensive Completed 12/27/2013 36181 Eye Exam Est Intermediate Completed 12/27/2013 79614 Visual Field Exam Extended, Unilateral Or Bilateral Completed 12/07/2010 79380 Fundus Photography W/Interpretation & Report Completed 12/07/2010 80697 Refraction Completed 12/07/2010 18564 Eye Exam Est Comprehensive Completed 12/26/2009 91578 Fundus Photography W/Interpretation & Report Completed 12/26/2009 01838 Refraction Completed 12/26/2009 80223 Eye Exam Est Comprehensive Completed 12/20/2008 14398 Eye Exam Est Intermediate Completed 04/29/2008 03342 Extracapsular Cataract Removal W/Insertion Of Intraocular Completed Lens pr 04/23/2008 47746 Ophthalmic Biometry By Partial Coherence Interferometry Completed W/Intra 04/22/2008 15735 Extracapsular Cataract Extraction W/Intraocular Lens Completed 02/15/2008 91915 Ophthalmoscopy Initial Completed 02/15/2008 09751 Ophthalmic Biometry By Partial Coherence Interferometry Completed W/Intra 02/15/2008 27895 Eye Exam New Comprehensive Completed Encounters Type Date Location Provider Dx Diagnosis Office Visit 10/30/2018 Main Office Dayo Cash, OD 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
--- NOTE | 2018-11-12 16:27 | ED ---
Head Injury - HPI Summary HPI Summary: patient is an 83-year-old male who is otherwise healthy presenting to the ED with a head injury after a mechanical fall this afternoon. He states he fell onto his right side, hitting his head and injuring his nose. He arrives with a nosebleed. He states he is "achy" but denies any other pain. There is a small amount of ecchymosis to the bridge of the nose. Bleeding is controlled on arrival. He was ambulatory immediately following. - History Of Current Complaint Chief Complaint: EDHeadInjury Stated Complaint: FALL/HEAD INJURY/NOSE BLEED PER PT Time Seen by Provider: 11/12/18 14:19 Hx Obtained From: Patient Onset/Duration: Started Hours Ago, Traumatic Onset of Pain: Hours Severity Currently: Moderate Severity Initially: Moderate Pain Intensity: 2 Pain Scale Used: 0-10 Numeric Location of Head Injury: Other: - nasal bone injury Associated Signs And Symptoms: Epistaxis - prior to arrival Anticoagulant Therapy: Blood Thinners - Risk Factors SDH Risk Factor: Negative - Allergies/Home Medications Allergies/Adverse Reactions: Allergies Allergy/AdvReac Type Severity Reaction Status Date / Time gluten Allergy Unknown Verified 11/12/18 13:38 Reaction Details MS Lactose Intolerance (GI) Allergy Nausea And Verified 11/12/18 13:38 [Lactose Intolerance (GI)] Vomiting PMH/Surg Hx/FS Hx/Imm Hx Previously Healthy: Yes Endocrine/Hematology History: Reports: Hx Thyroid Disease, Hx Anemia Denies: Hx Diabetes Cardiovascular History: Reports: Hx Angina, Hx Hypotension, Hx Syncope Denies: Hx Hypertension, Hx Pacemaker/ICD Comment Only: Other Cardiovascular Problems/Disorders - stent to rca this admission Respiratory History: Reports: Hx Sleep Apnea Denies: Hx Asthma, Hx Chronic Obstructive Pulmonary Disease (COPD) GI History: Reports: Hx Ulcer - HX OF, Other GI Disorders - CHRONIC CONSTIPATION History: Reports: Other Problems/Disorders - BPH WITH OBSTRUCTION Denies: Hx Renal Disease Musculoskeletal History: Reports: Hx Bursitis - LEFT HIP, Hx Osteoporosis, Other Musculoskeletal History - OSTEO Sensory History: Reports: Hx Contacts or Glasses, Hx Hearing Aid Opthamlomology History: Reports: Hx Contacts or Glasses Neurological History: Reports: Other Neuro Impairments/Disorders - hx of syncopy r/t hypotension Psychiatric History: Reports: Hx Anxiety, Hx Depression Denies: Hx Panic Disorder - Surgical History Surgery Procedure, Year, and Place: bilat cataract removal 2008- @ [facility] [place]. ulcer removal SX 50 years ago. PROSTATE - PROCEDURE -TURP Hx Anesthesia Reactions: No - Immunization History Hx Pertussis Vaccination: No Immunizations Up to Date: Yes Infectious Disease History: No Infectious Disease History: Reports: Hx Shingles Denies: Hx Hepatitis, Hx Human Immunodeficiency Virus (HIV), History Other Infectious Disease, Traveled Outside the [place] in Last 30 Days - Family History Known Family History: Positive: None, Other - arthritis, pacemaker - Social History Occupation: Unemployed Lives: With Family Alcohol Use: Rare Hx Substance Use: No Substance Use Type: Reports: None Hx Tobacco Use: Yes Smoking Status (MU): Former Smoker Have You Smoked in the Last Year: No Review of Systems Constitutional: Negative Negative: Fever, Chills, Fatigue, Skin Diaphoresis Negative: Palpitations, Chest Pain Negative: Shortness Of Breath, Cough Genitourinary: Negative Positive: no symptoms reported, see HPI Negative: Arthralgia, Myalgia Skin: Negative Negative: Headache, Weakness, Paresthesia, Numbness All Other Systems Reviewed And Are Negative: Yes Physical Exam Triage Information Reviewed: Yes Vital Signs On Initial Exam: Initial Vitals Temp Pulse Resp BP Pulse Ox 97.9 F 68 14 136/61 96 11/12/18 13:38 11/12/18 13:38 11/12/18 13:38 11/12/18 13:38 11/12/18 13:38 Vital Signs Reviewed: Yes Appearance: Positive: Well-Appearing, Well-Nourished Skin: Positive: Warm, Skin Color Reflects Adequate Perfusion, Other - ecchymosis to the bridge of the nose Eyes: Positive: EOMI, TERRANCE, Conjunctiva Clear ENT: Negative: Nasal congestion, Nasal drainage Neck: Positive: Supple, Nontender, No Lymphadenopathy Respiratory/Lung Sounds: Positive: Clear to Auscultation, Breath Sounds Present Cardiovascular: Positive: RRR, Pulses are Symmetrical in both Upper and Lower Extremities Musculoskeletal: Positive: Normal, Strength/ROM Intact Neurological: Positive: Sensory/Motor Intact, Alert, Oriented to Person Place, Time, Speech Normal Psychiatric: Positive: Affect/Mood Appropriate AVPU Assessment: Alert Diagnostics - Vital Signs Vital Signs Temp Pulse Resp BP Pulse Ox 11/12/18 15:22 55 18 144/77 97 11/12/18 15:17 53 20 141/71 98 11/12/18 15:00 52 13 97 11/12/18 14:52 56 16 126/69 97 11/12/18 14:22 58 15 137/71 97 11/12/18 14:21 58 98 11/12/18 13:38 97.9 F 68 14 136/61 96 - Laboratory Lab Statement: Any lab studies that have been ordered have been reviewed, and results considered in the medical decision making process. Head Injury Course/Dx Course Of Treatment: During the course treatment, the patient is evaluated for a fall with a nasal bone injury. He denies any pain at this time including headache, neck pain, nausea, vomiting, visual changes, neck pain. There is a small amount of ecchymosis to the bridge of the nose. Nose bleeding is well controlled on arrival. He denies any specific pain to the hips, lower extremity is otherwise or upper extremities. He is describing a "ache" all over which is rated 2/10. He remains Favian. CT brain and cervical spine obtained which are both negative for any acute findings. X-ray of the nasal bones obtained which shows a nondisplaced right nasal bone fracture. He will be discharged home with nasal bone injury and fall. - Diagnoses Differential Diagnosis/HQI/PQRI: Contusion, Nasal Fracture, Other - nosebleed Provider Diagnoses: Nasal bone fracture Discharge - Sign-Out/Discharge Documenting (check all that apply): Patient Departure Patient Received Moderate/Deep Sedation with Procedure: No - Discharge Plan Condition: Stable Disposition: HOME Patient Education Materials: Nasal Fracture (ED), Nosebleed (ED), Fall Prevention for Older Adults (ED) Referrals: Hunter Mariee MD [Medical Doctor] - An Dela Cruz MD [Primary Care Provider] - Additional Instructions: Please follow up with PCP Follow up with ENT regarding your nasal bone fracture If you develop any nosebleed, please use the nasal bone clip AFTER blowing out any clots If the area is still bleeding (mildly) before bed, you may use a cotton swab or toilet paper into the nare Tylenol 650mg three times daily for any discomfort Moist heat to any aching areas - Billing Disposition and Condition Condition: STABLE Disposition: Home
[2018-11-12 16:30] LABS: Urine Appearance Clear; Urine Bacteria Absent (Absent); Urine Bilirubin Negative (Negative); Urine Blood 1+ (Negative); Urine Color Yellow; Urine Glucose Negative (Negative); Urine Ketones Negative (Negative); Urine Nitrite Negative (Negative); Urine Protein Negative (Negative); Urine Red Blood Cell 2+(6-10/hpf) (Absent); Urine Specific Gravity 1.009 (1.010-1.030); Urine Urobilinogen Negative (Negative); Urine White Blood Cell Trace(0-5/hpf) (Absent)
[2018-11-12 16:36] VITALS: BP 139/75
== END 2018-11-12 16:35 | disposition home or self-care (01) ==
LOC: ED 13:32
DX: S02.2XXA Fracture of nasal bones, initial encounter for closed fracture (principal); W01.0XXA Fall on same level from slipping, tripping and stumbling without subsequent striking against object, initial encounter; M85.88 Other specified disorders of bone density and structure, other site; M50.30 Other cervical disc degeneration, unspecified cervical region; M47.9 Spondylosis, unspecified; R94.31 Abnormal electrocardiogram [ECG] [EKG]; I95.9 Hypotension, unspecified; E07.9 Disorder of thyroid, unspecified; D64.9 Anemia, unspecified; R55 Syncope and collapse; N40.0 Benign prostatic hyperplasia without lower urinary tract symptoms; F41.9 Anxiety disorder, unspecified; F32.9 Major depressive disorder, single episode, unspecified; Z95.5 Presence of coronary angioplasty implant and graft; Z88.8 Allergy status to other drugs, medicaments and biological substances; Z87.891 Personal history of nicotine dependence
CPT/HCPCS: 70160; 70450; 72125; 81003; 81015; 87086; 93005; 99283

== ENCOUNTER 2019-03-23 17:05 | Emergency (ER) | payer MEDICARE, BC ==
[2019-03-23 17:20] VITALS: BP 136/62
--- NOTE | 2019-03-23 17:52 | UC ---
Minor Trauma HPI - HPI Summary HPI Summary: ABOUT 1 HOUR AUDIT INTERN PATIENT WAS BENDING OVER TO PUT SOMETHING ON A LOW SHELF WHEN HE LOST HIS BALANCE AND FELL. HE DENIES ANY HEAD INJURY OR LOC. DOES NOT REPORT ANY PAIN, BRUISING OR SWELLING BUT WAS ENCOURAGED TO GET CHECKED OUT BY HIS FAMILY MEMBERS. STATES HE HAS SOME SUPERFICIAL ABRASIONS ON HIS KNEES FROM WHEN HE CRAWLED ON THE CONCRETE FLOOR AFTER HE FELL. UP-TO-DATE TETANUS. - History of Current Complaint Chief Complaint: UCGeneralIllness Stated Complaint: ARMS, ELBOWS INJURY Time Seen by Provider: 03/23/19 17:29 Hx Obtained From: Patient, Family/Form Grader Operator - SON-IN-LAW Onset/Duration: Sudden Onset Severity Initially: Mild Severity Currently: None Pain Intensity: 0 Pain Scale Used: 0-10 Numeric Mechanism Of Injury: Fall From A Standing Position Aggravating Factor(s): Nothing Alleviating Factor(s): Nothing Associated Signs And Symptoms: Negative: Loss Of Consciousness, Ecchymosis, Swelling - Allergies/Home Medications Allergies/Adverse Reactions: Allergies Allergy/AdvReac Type Severity Reaction Status Date / Time gluten Allergy Unknown Verified 03/23/19 17:20 Reaction Details lactose Allergy Nausea Verified 03/23/19 17:20 Home Medications: Home Medications Lactase [Lactaid] 03/23/19 [History] PMH/Surg Hx/FS Hx/Imm Hx - Additional Past Medical History Additional PMH: SLEEP APNEA Endocrine History: Hypothyroidism GI/ History: Ulcer - Surgical History Surgical History: Yes Surgery Procedure, Year, and Place: bilat cataract removal 2007- @ [facility] [place]. ulcer removal SX 50 years ago. PROSTATE - PROCEDURE -TURP - Family History Known Family History: Positive: None, Other - arthritis, pacemaker - Social History Alcohol Use: None Substance Use Type: None Smoking Status (MU): Former Smoker Have You Smoked in the Last Year: No When Did the Patient Quit Smoking/Using Tobacco: 50 YRS - Immunization History Most Recent Influenza Vaccination: 2018 Most Recent Tetanus Shot: unknown Most Recent Pneumonia Vaccination: 2018 Review of Systems All Other Systems Reviewed And Are Negative: Yes Constitutional: Positive: Negative Skin: Positive: Other - ABRASIONS Respiratory: Positive: Negative Cardiovascular: Positive: Negative Gastrointestinal: Positive: Negative Musculoskeletal: Positive: Negative Physical Exam Triage Information Reviewed: Yes Appearance: Well-Appearing, No Pain Distress, Well-Nourished Vital Signs: Initial Vital Signs Temp 100 F 09/06/19 17:12 Pulse 64 03/23/19 17:12 Resp 16 03/23/19 17:12 BP 136/62 03/23/19 17:12 Pulse Ox 97 03/23/19 17:12 Vital Signs Reviewed: Yes Eyes: Positive: Conjunctiva Clear ENT: Positive: Hearing grossly normal Neck: Positive: Supple Respiratory: Positive: No respiratory distress, No accessory muscle use Cardiovascular: Positive: Pulses Normal Musculoskeletal: Positive: ROM Intact, No Edema, Other: - NO BONY OR SOFT TISSUE TENDERNESS TO SHOULDERS, ELBOWS, WRISTS, HANDS OR KNEES. Neurological: Positive: Alert Psychological: Positive: Normal Response To Family, Age Appropriate Behavior Skin: Positive: Other - SPFL ABRASIONS TO BILATERAL ANTERIOR KNEES Minor Trauma Course/Dx - Course Course Of Treatment: PATIENT DENIES ANY PAIN ON ARRIVAL TO THE URGENT CARE. EXAM NORMAL OTHER THAN 2 VERY SUPERFICIAL SMALL ABRASIONS ON HIS KNEES FROM WHERE HE SAYS HE WAS CRAWLING ON THE CONCRETE FLOOR AFTER HE FELL. STATES HE WOULD NOT HAVE COME IN HAD HIS NOT ALSO FALLEN DOWN WHEN TRYING TO HELP HIM. NO INDICATION FOR X- RAYS TODAY. ENCOURAGED PATIENT TO WEAR HIS LIFE ALERT BUTTON THAT HE HAS A HOME. FOLLOW-UP IF HE DEVELOPS ANY PAIN OR CONCERNING SYMPTOMS. OF NOTE PATIENT'S TEMPERATURE IS ELEVATED AT 100 HOWEVER HE WAS DIAGNOSED TODAY WITH A UTI AND HAS ANTIBIOTICS WAITING FOR HIM TO TALENT COORDINATOR AT THE PHARMACY. - Differential Dx/Diagnosis Provider Diagnosis: Fall at home Discharge ED - Sign-Out/Discharge Documenting (check all that apply): Patient Departure All imaging exams completed and their final reports reviewed: No Studies - Discharge Plan Condition: Stable Disposition: HOME Patient Education Materials: Fall Prevention for Older Adults (ED), Abrasion ( ED) Referrals: An Dela Cruz MD [Primary Care Provider] - If Needed Additional Instructions: YOU HAVE NO APPARENT MUSCULOSKELETAL INJURY ON EXAM TODAY. NO INDICATION FOR ANY IMAGING. I SUGGEST YOU CONSIDER USING AN ASSISTIVE DEVICE FOR MOBILITY AND TRY NOT TO KEEP THINGS TOO LOW TO REDUCE yYOUR RISK OF FALLS. CONSIDER WEARING A LIFE ALERT BUTTON THERE CAN BE DANGEROUS REPERCUSSIONS IF YOU FALL AND ARE UNABLE TO GET BACK UP AND THERE IS NO ONE AROUND HELP YOU. YOU HAVE SUPERFICIAL ABRASIONS ON HER KNEES WHICH SHOULD HEAL WELL WITHOUT ANY ACUTE INTERVENTION. SEEK FOLLOW-UP IF YOU DEVELOP SPREADING REDNESS OF THE SKIN, PURULENT DRAINAGE, FEVER, INCREASED PAIN OR ANY OTHER CONCERNING SYMPTOMS. - Billing Disposition and Condition Condition: STABLE Disposition: Home
== END 2019-03-23 17:51 | disposition home or self-care (01) ==
LOC: UCEAST 17:05
DX: S80.212A Abrasion, left knee, initial encounter (principal); S80.211A Abrasion, right knee, initial encounter; W18.30XA Fall on same level, unspecified, initial encounter; Y92.9 Unspecified place or not applicable; E03.9 Hypothyroidism, unspecified; Z87.891 Personal history of nicotine dependence
CPT/HCPCS: 99212; G0463

== ENCOUNTER 2019-04-16 10:24 | Emergency (ER) | payer MEDICARE, BC ==
--- OUTSIDE RECORDS SUMMARY | 2019-04-16 10:30 | XMS REPORT | Continuity of Care Document ---
:1935 External Reference #:[id number] Author Name Dayo Cash, OD Address [address] [place] [address] Care Team Providers Name Role Phone An Dela Cruz MD Care Team Information Elastic Attacher Zigzag [phone] Problems Active Problems Provider Date Epiretinal membrane [...] Borderline glaucoma Dayo Conklin O.D. Onset: 12/27/2013 Social History Type Date Description Comments Sex Unknown ETOH Use Occasionally consumed alcohol in the past Tobacco Use Start: Unknown Patient has never smoked Smoking Status Reviewed: 04/09/19 Patient has never smoked Allergies, Adverse Reactions, Alerts Active Allergies Reaction Severity Comments Date NKDA 12/27/2013 Seasonal 12/27/2013 Medications Active Medications SIG Qnty Indications Ordering Provider Date Ra Ophthalmic one drop tid OU 15ml Dayo Cash, OD 02/06/2019 5% Solution [facility] Sodium Chloride one drop tid OU 15ml Dayo Cash, OD 01/05/2019 5% Solution Bupropion HCL ER (XL) Unknown 300mg Tablets ER 24HR Lactulose Unknown 10GM/15ML Solution Levothyroxine Sodium Unknown 75mcg Tablets Citalopram Hydrobromide Unknown 10mg Tablets Fluticasone Propionate instill 1 spray Unknown into each nostril 50mcg/Act Suspension once daily or as directed Constulose Unknown 10GM/15ML Solution Brilinta Unknown 90mg Tablets History Medications Fluorometholone 1gtt bid OD x 2 10ml Dayo Cash, OD 10/16/2018 - 0.1% Suspension weeks, then d/c 10/16/2018 Fluorometholone 1gtt bid OD x 2 10ml Dayo Cash, OD 10/16/2018 - 0.1% Suspension weeks, then d/c 10/30/2018 Immunizations Description No Information Available Vital Signs Date Vital Result Comment 02/06/2019 10:45am Intraocular Pressure Right Eye 16 mmHg Intraocular Pressure Left Eye 16 mmHg 10/30/2018 3:41pm Intraocular Pressure Right Eye 16 mmHg Results Description No Information Available Procedures Date Code Description Status 02/06/2019 58449 Refraction Completed 02/06/2019 19972 Eye Exam Est Intermediate Completed Medical Devices Description No Information Available Encounters Type Date Location Provider Dx Diagnosis Office Visit 10/30/2018 Main Office Dayo Cash, OD 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 H11.31 Conjunctival hemorrhage, right eye Office Visit 10/16/2018 3:00p Main Office Dayo Cash, H11.31 Conjunctival OD hemorrhage, right eye 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 Assessments Date Code Description Provider 04/09/2019 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, bilateral Dayo Cash, OD 04/09/2019 H40.013 Open angle with borderline findings, low risk, Dayoyvonne Cash, OD bilateral 04/09/2019 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 Dayo Cash, OD 04/09/2019 H43.813 Vitreous degeneration, bilateral Dayo Cash, OD 02/06/2019 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 Dayo Cash, OD 02/06/2019 H40.013 Open angle with borderline findings, low risk, Dayo Cash, OD bilateral 02/06/2019 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
--- OUTSIDE RECORDS SUMMARY | 2019-04-16 10:30 | XMS REPORT | Continuity of Care Document ---
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 Onset: 07/30/2015 Localized, primary osteoarthritis Tico Clemente M.D. Onset: 07/30/2015 Obstructive sleep apnea syndrome Shy Haq, KYLEE, RN, DESULPHURING OPERATOR- Onset: Social History Type Date Description Comments Sex Unknown Tobacco Use Start: Unknown Never Smoked Cigarettes Smoking Status Reviewed: 04/10/19 Never Smoked Cigarettes ETOH Use Denies alcohol [...] mouth every 90tabs E78.5 Shiv Chamorro, 2018 40mg day DO FACC Tablets Brilinta 1 tab by mouth 180tabs Shiv Chamorro, 08/01/2018 90mg Tablets twice a day DO FACC Aspirin Adult Low Dose 1 by mouth every 100tabs Shiv Chamorro, 2017 day DO FACC 81mg Tablets DR Amlodipine Besylate 1 by mouth every 90tabs Shiv Chamorro, 06/14/2018 2.5mg day DO FACC Tablets Cpap for use while Unknown sleeping with pillow mask Isosorbide Mononitrate 1 by mouth every Unknown ER day 30mg Tablets ER 24HR Triamcinolone as directed Sugar Nicholas, Acetonide 0.1% Cream Bupropion HCL ER (XL) 2 tablet by Unknown mouth every day 150mg Tablets ER 24HR Ra Ophthalmic instill 1 drop Unknown 5% Solution into both eyes three times a day Refresh 1 gtt both eyes Unknown Solution three times daily Mucinex 1 by mouth daily Unknown 600mg Tablets ER as needed 12HR Stool Softener 1 by mouth qpm Unknown 100mg Capsules Lactaid prn Unknown Tablets Ferrous Gluconate 1 tablet by Unknown mouth three 324(38Fe) mg Tablets times a week on days Mon, Wed, Fri Vitamin C 1 by mouth every Unknown 500mg Capsules day Am Citracal +D3 2 bid Unknown 333-220-490wv-mg-Unit Chewtabs Fluticasone Propionate 2 sprays each Unknown nostril daily as 50mcg/Act Suspension needed Levothyroxine Sodium 1 by mouth every Unknown day PM 75mcg Tablets Citalopram 1 daily Unknown Hydrobromide 20mg Tablets Medications Administered in Office Medication SIG Qnty Indications Ordering Provider Date Inj, Regadenoson, 0.1 MG Shiv Chamorro DO [facility] 06/14/2018 Injection Technetium TC 99M Shiv Chamorro, DO FAC 06/14/2018 Tetrofosmin, Per Unit Dose Up To 40 Millicuries Injection Depomedrol 80MG Britney Mera M.D. 09/07/2012 Injection Depomedrol 80MG Britney Mera M.D. 09/07/2012 Injection Immunizations Description No Information Available Vital Signs Date Vital Result Comment 04/10/2019 10:19am Height 71 inches 5'11" Weight 130.00 lb Heart Rate 54 /min BP Systolic Sitting 110 mmHg Lue regular cuff BP Diastolic Sitting 56 mmHg Lue regular cuff Respiratory Rate 12 /min O2 % BldC Oximetry 97 % BMI (Body Mass Index) 18.1 kg/m2 12/26/2018 9:53am Height 71 inches 5'11" Weight 130.12 lb Heart Rate 60 /min BP Systolic Sitting 102 mmHg BP Diastolic Sitting 62 mmHg Respiratory Rate 18 /min O2 % BldC Oximetry 98 % Room air BMI (Body Mass Index) 18.1 kg/m2 Results Description No Information Available Procedures Date Code Description Status 01/31/2019 00881 Polysomnography Sleep Staging 4+ Parameters Completed 12/21/2018 098830943 Bone Mineral Density Test Completed 11/06/2018 76090 Polysomnography Sleep Staging 4+ Parameters W/Cpap Completed Medical Devices Description No Information Available Encounters Type Date Location Provider Dx Diagnosis Office Visit 04/10/2019 [facility] G47.33 Obstructive sleep 10:30a [facility] Echeverria apnea (adult) [facility] (pediatric) 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 Office Visit 10/24/2018 [facility] Shy G47.33 Obstructive sleep 10:30a [facility] Haq, RN, apnea (adult) [facility] DESULPHURING OPERATOR-BC (pediatric) Assessments Date Code Description Provider 04/10/2019 G47.33 Obstructive sleep apnea (adult) Britney Echeverria NP (pediatric) 04/10/2019 G47.37 Central sleep apnea in conditions Britney Echeverria NP classified elsewhere 01/31/2019 G47.33 Obstructive sleep apnea (adult) Kasia Montoya MD (pediatric) 12/26/2018 G47.33 Obstructive sleep apnea (adult) Britney Echeverria NP (pediatric) 12/26/2018 G47.37 Central sleep apnea in conditions Britney Echeverria NP classified elsewhere 11/29/2018 Z98.61 Coronary angioplasty status Shiv Chamorro, DO [facility] 11/29/2018 E78.5 Hyperlipidemia, unspecified Shiv Chamorro, DO [facility] 11/10/2018 G47.33 Obstructive sleep apnea (adult) Britney Echeverria NP (pediatric) 11/10/2018 G47.37 Central sleep apnea in conditions Britney Echeverria NP classified elsewhere 11/06/2018 G47.33 Obstructive sleep apnea (adult) Kasia Montoya MD (pediatric) 10/24/2018 G47.33 Obstructive sleep apnea (adult) Shy Haq DNP, RN, DESULPHURING OPERATOR- (pediatric) Plan of Treatment 04/10/2019 - Britney Echeverria NPG47.33 Obstructive sleep apnea (adult) ( pediatric)New Orders:Sleep-Homecare, Ordered: 04/10/19Recommendations:Keep up the good work with your ASV. Try increasing your humidifier setting if you are having issueswith increased mucus. If you have difficulty with your equipment, or need to replace your mask or hoses, please contact your homecare agency, [facility] . If you have any further questions, please call the [facility] at [phone] If you have any sleepiness while driving you MUST avoid operating a vehicle or machinery. If you feel tired while driving pull overand take a nap or switch drivers. If you know you are sleepy and need to go somewhere, arrange for aride or use public transportation. 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
[2019-04-16 10:36] VITALS: BP 133/67
--- NOTE | 2019-04-16 10:50 | UC ---
Upper Extremity HPI - HPI Summary HPI Summary: 83 year old male with multiple PMH including jenn-coag, fell this AM outside home, denies lightheadedness/ dizziness, tripped over uneven ground, no ZHANG/ LOC. Was helped up by friend, denied any pain at time of injury but noted forearm, elbow pain, sharp pain, with pushing up glasses after event. present with friend. Denies other symtpoms, headache. no R shoulder pain - History of Current Complaint Chief Complaint: UCUpperExtremity Stated Complaint: ARM INJURY Time Seen by Provider: 04/16/19 10:40 Hx Obtained From: Patient ?: No Onset/Duration: Sudden Onset Severity Initially: Mild Severity Currently: Mild Pain Intensity: 4 Pain Scale Used: 0-10 Numeric Location Of Pain: Is Discrete @ - right elbow Character: Aching, Throbbing Aggravating Factor(s): Movement Alleviating Factor(s): Rest Associated Signs And Symptoms: Positive: Bruising. Negative: Weakness, Numbness /Tingling - Allergies/Home Medications Allergies/Adverse Reactions: Allergies Allergy/AdvReac Type Severity Reaction Status Date / Time gluten Allergy Unknown Verified 04/16/19 10:30 Reaction Details lactose Allergy Nausea Verified 04/16/19 10:30 PMH/Surg Hx/FS Hx/Imm Hx Previously Healthy: No - depression, osteoporosis, Hrt dx, Cardiovascular History: Cardiac Disease - Surgical History Surgical History: Yes Surgery Procedure, Year, and Place: [place] [facility] [place] removal SX 50 years ago. PROSTATE - PROCEDURE -TURP. STENT place 07/2018 - Family History Known Family History: Positive: None, Other - arthritis, pacemaker - Social History Alcohol Use: None Substance Use Type: None Smoking Status (MU): Former Smoker Have You Smoked in the Last Year: No When Did the Patient Quit Smoking/Using Tobacco: 50 YRS - Immunization History Most Recent Influenza Vaccination: 2018 Most Recent Tetanus Shot: unknown Most Recent Pneumonia Vaccination: 2018 Review of Systems All Other Systems Reviewed And Are Negative: Yes Skin: Positive: Bruising Musculoskeletal: Positive: Arthralgia, Decreased ROM, Edema, Myalgia Is Patient Immunocompromised?: No Physical Exam Triage Information Reviewed: Yes Appearance: Well-Appearing, No Pain Distress, Well-Nourished Vital Signs: Initial Vital Signs Temp 97.3 F 04/16/19 10:31 Pulse 66 04/16/19 10:31 Resp 16 04/16/19 10:31 BP 133/67 04/16/19 10:31 Pulse Ox 99 04/16/19 10:31 Vital Signs Reviewed: Yes Eyes: Positive: Conjunctiva Clear Musculoskeletal: Positive: ROM Intact - right elbow, wrist, fingers AROM without pain, No Edema - R UE, Other: - neg brief RC testing - TTP over medial olecranon, prox to midshalft ulna. - radial/ ulnar pulses 2+ b/l - Elbow ROM- 0-150 without pain, good sup/ pronantion Neurological: Positive: Alert, Other: - SITLT distal to right elbow. Photographer Model strength weak, = b/l Psychological Exam: Normal Psychological: Positive: Normal Response To Family Skin: Positive: Other - no open wounds, sores. + ecchymosis over lateral/ medial elbows, appears fresh, and old ecchymosis over lateral mid forearm. Upper Extremity Course/Dx - Course Course Of Treatment: radiographs due to patient age, h/o osteoporosis: anterior fat pad, minimal, no fx seen but possible based on fat pad. Due to benign examination, discussed with patient possibility for fracture, however exam non-consistent with fx. Discussed treatment options with patient , including sling/ splint, monitoring, elected to continue to monitor area and if no improvement within 2-3 days follow up with ortho for repeat exam/ radiographs. Contusion vs Elbow fracture - Radiographs inconclusive for potential fracture, however exam unlikely for fracture. If no improvement with pain, swelling within 2-3 days, follow up with orthopedics for repeat X-rays, examination - Ice to area, elevate to prevent swelling, bruising - Decreased use of arm, no heavy lifting, until pain decreased. - Return with increased swelling, pain, decreased motion - Differential Dx/Diagnosis Differential Diagnosis/HQI/PQRI: Laceration, Strain, Sprain Provider Diagnosis: Contusion Discharge ED - Sign-Out/Discharge Documenting (check all that apply): Patient Departure All imaging exams completed and their final reports reviewed: Yes - Discharge Plan Condition: Good Disposition: HOME Patient Education Materials: Contusion in Adults (ED) Referrals: An Dela Cruz MD [Primary Care Provider] - Rebecca Gordon MD [Medical Doctor] - (Follow up in 2-3 days if no improvement ) Additional Instructions: Contusion vs Elbow fracture - Radiographs inconclusive for potential fracture, however exam unlikely for fracture. If no improvement with pain, swelling within 2-3 days, follow up with orthopedics for repeat X-rays, examination - Ice to area, elevate to prevent swelling, bruising - Decreased use of arm, no heavy lifting, until pain decreased. - Return with increased swelling, pain, decreased motion - Tylenol as needed for pain - Billing Disposition and Condition Condition: GOOD Disposition: Home
== END 2019-04-16 11:42 | disposition home or self-care (01) ==
LOC: UCEAST 10:24
DX: S50.01XA Contusion of right elbow, initial encounter (principal); M81.0 Age-related osteoporosis without current pathological fracture; Z91.011 Allergy to milk products; Z91.018 Allergy to other foods; Z87.891 Personal history of nicotine dependence; W01.0XXA Fall on same level from slipping, tripping and stumbling without subsequent striking against object, initial encounter; Y92.9 Unspecified place or not applicable
CPT/HCPCS: 99211; G0463

== ENCOUNTER 2019-05-14 10:16 | Emergency (ER) | payer MEDICARE, BC ==
[2019-05-14 10:24] VITALS: BP 129/63
--- NOTE | 2019-05-14 10:37 | UC ---
Hip/Pelvis Pain - HPI Summary HPI Summary: 83-year-old male who fell yesterday when he attempted to reach above his head with a fly swatter to swat a bug and he lost his balance and fell landing on his left hip and left thumb. He denies hitting his head and denies any neck pain. He has complete recall of the incident. - History Of Current Complaint Chief Complaint: UCTrauma Stated Complaint: FINGER AND HIP INJURY Time Seen by Provider: 05/14/19 10:26 Hx Obtained From: Patient Onset/Duration: Sudden Onset Timing: Constant Severity Initially: Mild Severity Currently: Mild Pain Intensity: 8 Character Of Pain: Dull, Aching Aggravating Factor(s): Movement, Weight Bearing Alleviating Factor(s): Rest Associated Signs And Symptoms: Positive: Swelling, Bruising - Allergies/Home Medications Allergies/Adverse Reactions: Allergies Allergy/AdvReac Type Severity Reaction Status Date / Time gluten Allergy Unknown Verified 05/14/19 10:25 Reaction Details lactose Allergy Nausea Verified 05/14/19 10:25 PMH/Surg Hx/FS Hx/Imm Hx Previously Healthy: Yes Endocrine History: Thyroid Disease Cardiovascular History: Cardiac Disease GI/ History: Ulcer - Surgical History Surgical History: Yes Surgery Procedure, Year, and Place: bilat cataract removal 2007- @ [facility] [place]. ulcer removal SX 50 years ago. PROSTATE - PROCEDURE -TURP. STENT place 07/2018 - Family History Known Family History: Positive: None, Other - arthritis, pacemaker - Social History Occupation: Retired Lives: With Family Alcohol Use: None Substance Use Type: None Smoking Status (MU): Former Smoker Have You Smoked in the Last Year: No When Did the Patient Quit Smoking/Using Tobacco: 50 YRS - Immunization History Most Recent Influenza Vaccination: 2018 Most Recent Tetanus Shot: unknown Most Recent Pneumonia Vaccination: 2018 Review of Systems All Other Systems Reviewed And Are Negative: Yes Skin: Positive: Bruising - Patient's left thumb is bruised and swollen however for range of motion. Musculoskeletal: Positive: Other: - Pain left hip however walks with mild pain. Patient states the left hip pain is worse today than yesterday. Is Patient Immunocompromised?: No Physical Exam Triage Information Reviewed: Yes Appearance: Well-Appearing, No Pain Distress, Well-Nourished Vital Signs: Initial Vital Signs Temp 97.7 F 05/14/19 10:20 Pulse 52 05/14/19 10:20 Resp 16 05/14/19 10:20 BP 129/63 05/14/19 10:20 Pulse Ox 100 05/14/19 10:20 Vital Signs Reviewed: Yes Neck: Positive: Supple, Nontender - C-spine nontender, No Lymphadenopathy Respiratory: Positive: Chest non-tender, Lungs clear, Normal breath sounds, No respiratory distress, No accessory muscle use Cardiovascular: Positive: RRR, No Murmur, Pulses Normal, Brisk Capillary Refill Musculoskeletal: Positive: Strength Intact, ROM Intact, Other: - Mild discomfort on palpation left hip but full range of motion. Left hip has a small bruise present which is tender on palpation. Left thumb is swollen and bruised but full range of motion. Navicular is nontender. Good peripheral pulses, neurosensation, capillary refill. Good range of motion. Able to touch his thumb to every finger without difficulty. Neurological Exam: Normal Psychological Exam: Normal Skin Exam: Normal Hip Injury Course/Dx - Course Course Of Treatment: Left hip and pelvis: Negative Left thumb: Negative The patient is to apply ice intermittently to the sore areas and may take Tylenol for pain. He is to follow-up with his primary care provider or orthopedist if he continues to have left thumb pain or any worsening hip pain. Patient is in agreement to this plan of action. - Differential Dx/Diagnosis Provider Diagnosis: Left thumb sprain, Contusion of left hip, Contusion of left thumb Discharge ED - Sign-Out/Discharge Documenting (check all that apply): Patient Departure All imaging exams completed and their final reports reviewed: Yes - Discharge Plan Condition: Good Disposition: HOME Patient Education Materials: Contusion in Adults (ED) Referrals: An Dela Cruz MD [Primary Care Provider] - Additional Instructions: Continue to apply ice and elevate as much as possible over the next day or 2. Take Tylenol for pain. Definite follow-up with your primary care provider if you have continued pain without improvement. - Billing Disposition and Condition Condition: GOOD Disposition: Home
== END 2019-05-14 11:29 | disposition home or self-care (01) ==
LOC: UCEAST 10:16
DX: S63.602A Unspecified sprain of left thumb, initial encounter (principal); S70.02XA Contusion of left hip, initial encounter; W18.30XA Fall on same level, unspecified, initial encounter; Y92.9 Unspecified place or not applicable; Z91.011 Allergy to milk products; Z91.09 Other allergy status, other than to drugs and biological substances; Z87.891 Personal history of nicotine dependence
CPT/HCPCS: 99211; G0463

== ENCOUNTER 2019-09-29 14:25 | Emergency (ER) | payer MEDICARE, BC ==
--- OUTSIDE RECORDS SUMMARY | 2019-09-29 14:51 | XMS REPORT | Continuity of Care Document ---
:1935 External Reference #:[id number] Author Name Shiv Chamorro, DO FACC (transmitted by agent of provider Rosalba Lackey) Address [address] 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 Onset: 07/30/2015 Localized, primary osteoarthritis Tico Clemente M.D. Onset: 07/30/2015 Obstructive sleep apnea syndrome Shy Haq DNP, RN, DATA SOLUT[employer] ARCHITECT- Onset: Social History Type Date Description Comments Sex Unknown Tobacco Use Start: Unknown Never Smoked Cigarettes Smoking Status Reviewed: 08/02/19 Never Smoked Cigarettes ETOH Use Denies alcohol [...] Chamorro, 2018 40mg day DO FACC Tablets Aspirin Adult Low Dose 1 by mouth every 100tabs Shiv Chamorro, 2017 day DO FACC 81mg Tablets Citalopramarce 1 daily Unknown Hydrobromide 20mg Tablets Levothyroxine Sodium 1 by mouth every Unknown day PM 75mcg Tablets Citracal +D3 2 bid Unknown [id number]-mg-Unit Chewtabs Vitamin C 1 by mouth every Unknown 500mg Capsules day Am Ferrous Gluconate 1 tablet by Unknown mouth three 324(38Fe) mg Tablets times a week on days Mon, Wed, Fri Lactaid prn Unknown Tablets Stool Softener 3 by mouth qpm Unknown 100mg Capsules Refresh 1 gtt both eyes Unknown Solution three times daily Ra Ophthalmic instill 1 drop Unknown 5% Solution into both eyes three times a day Bupropion HCL ER (XL) 2 tablet by Unknown mouth every day 150mg Tablets ER 24HR Isosorbide Mononitrate 1 by mouth every Unknown ER day 30mg Tablets ER 24HR Cpap for use while Unknown sleeping with pillow mask Medications Administered in Office Medication SIG Qnty Indications Ordering Provider Date Inj, Regadenoson, 0.1 MG Shiv Chamorro, DO [facility] 06/14/2018 Injection Technetium TC 99M Shiv Chamorro, DO [facility] 06/14/2018 Tetrofosmin, Per Unit Dose Up To 40 Millicuries Injection Depomedrol 80MG Britney Mera M.D. 09/07/2012 Injection Depomedrol 80MG Britney Mera M.D. 09/07/2012 Injection Immunizations Description No Information Available Vital Signs Date Vital Result Comment 08/02/2019 11:22am Height 71 inches 5'11" Weight 132.00 lb with shoes Heart Rate 50 /min BP Systolic Sitting 100 mmHg lue reg cuff BP Diastolic Sitting 54 mmHg lue reg cuff BP Systolic Standing 110 mmHg lue reg cuff BP Diastolic Standing 60 mmHg lue reg cuff Respiratory Rate 12 /min BMI (Body Mass Index) 18.4 kg/m2 Ejection Fraction 60-65% echo. 05/02/14 04/10/2019 10:19am Height 71 inches 5'11" Weight 130.00 lb Heart Rate 54 /min BP Systolic Sitting 110 mmHg Lue regular cuff BP Diastolic Sitting 56 mmHg Lue regular cuff Respiratory Rate 12 /min O2 % BldC Oximetry 97 % BMI (Body Mass Index) 18.1 kg/m2 Results Description No Information Available Procedures Date Code Description Status 08/02/2019 75947 EKG Tracing & Interpretation Completed 01/31/2019 08382 Polysomnography Sleep Staging 4+ Parameters Completed 12/21/2018 346113024 Bone Mineral Density Test Completed Medical Devices Description No Information Available Encounters Type Date Location Provider Dx Diagnosis Office Visit 04/10/2019 Pulmonology And Britney G47.33 Obstructive sleep 10:30a [facility] apnea (adult) 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) 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 Assessments Date Code Description Provider 08/02/2019 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 Dela Cruz check your cholesterol with next routine labs and send us a copy.Follow up:f/u 1 year Functional Status Description No Information Available Mental Status Description No Information Available Referrals Description No Information Available
--- NOTE | 2019-09-29 16:42 | ED ---
Adult Trauma - HPI Summary HPI Summary: 84 year old male presents to the ED with a chief complaint of hand and knee pain secondary to falling minutes [employer]PA[employer] TE[employer]. Patient was stepping off the curb when he tripped and fell. Patient has abrasions on both hands and his right knee. Patient denies head trauma, LOC, or arthralgia of his knees and wrists. He rates his pain 1/10 in severity. PMHx of anemia. - History of Current Complaint Chief Complaint: EDFall Stated Complaint: FALL Time Seen by Provider: 09/29/19 16:32 Hx Obtained From: Patient Mechanism of Injury: Fall Loss of Consciousness: no loss of consciousness Onset of Pain: Immediate Onset Severity: Moderate Current Severity: Mild Pain Intensity: 1 Pain Scale Used: 0-10 Numeric Location: Extremities Aggravating Factor(s): Nothing Alleviating Factor(s): Rest - Additional Pertinent History Primary Care Physician: JESSICA - Allergy/Home Medications Allergies/Adverse Reactions: Allergies Allergy/AdvReac Type Severity Reaction Status Date / Time gluten Allergy Unknown Verified 09/29/19 14:40 Reaction Details lactose Allergy Nausea Verified 09/29/19 14:40 Home Medications: Home Medications Alendronate (NF) [Fosamax (NF)] 70 mg PO WEEKLY 11/08/13 [History Confirmed 01/03] Ascorbic Acid TAB* [Vitamin C TAB*] 500 mg PO QAM 05/23/17 [History Confirmed 03/23/19] Bupropion XL* [Wellbutrin XL *] 2 tab PO QAM 05/23/17 [History Confirmed ] Citalopram TAB* [Celexa TAB*] 20 mg PO QPM 05/23/17 [History Confirmed 03/23/19] Docusate CAP* [Colace Cap*] 100 mg PO QPM 05/23/17 [History Confirmed 03/23/19] Ferrous Gluconate TAB* [Fergon TAB*] 325 mg PO SEE INSTRUCTIONS 05/23/17 [ History Confirmed 03/23/19] Levothyroxine TAB* [Synthroid 75 MCG TAB*] 75 mcg PO QPM 05/23/17 [History Confirmed 03/23/19] Amlodipine Besylate [Amlodipine 2.5 mg tab] 2.5 mg PO DAILY 07/28/18 [History Confirmed 03/23/19] Aspirin [Aspir-Low] 81 mg PO DAILY 07/28/18 [History Confirmed 03/23/19] Atorvastatin* [Lipitor 20 MG*] 40 mg PO DAILY 07/28/18 [History Confirmed ] Calcium Carb,Cit/D3/Phytostrol [Citracal D + Heart Health Tab] 1 each PO DAILY 07/28/18 [History Confirmed 03/23/19] Polyvinyl Alcohol/Povidone/Pf [Refresh Classic Eye Drops] 1 drop BOTH EYES TID 07/28/18 [History Confirmed 03/23/19] Ra Opthalmic 5% 1 drop BOTH EYES TID 07/28/18 [History Confirmed 03/23/19] Ticagrelor* [Brilinta 90 MG*] 90 mg PO BID 90 Days #180 tab 08/01/18 [Rx Confirmed 03/23/19] Clotrimazole 1% CREAM* [Clotrimazole 1%*] 1 applic TOPICAL BID #1 tube 12/05/18 [Rx Confirmed 03/23/19] Fluticasone NASAL SPRAY 50MCG* [Flonase NASAL SPRAY 50MCG*] 1 spray INH DAILY PRN 12/05/18 [History Confirmed 03/23/19] Lactase [Lactaid] 03/23/19 [History] PMH/Surg Hx/FS Hx/Imm Hx Endocrine/Hematology History: Reports: Hx Thyroid Disease, Hx Anemia Denies: Hx Diabetes Cardiovascular History: Reports: Hx Angina, Hx Hypotension, Hx Syncope Denies: Hx Hypertension, Hx Pacemaker/ICD Comment Only: Other Cardiovascular Problems/Disorders - stent to rca this admission Respiratory History: Reports: Hx Sleep Apnea Denies: Hx Asthma, Hx Chronic Obstructive Pulmonary Disease (COPD) GI History: Reports: Hx Ulcer - HX OF, Other GI Disorders - CHRONIC CONSTIPATION History: Reports: Other Problems/Disorders - BPH WITH OBSTRUCTION Denies: Hx Renal Disease Musculoskeletal History: Reports: Hx Bursitis - LEFT HIP, Other Musculoskeletal History - OSTEO Comment Only: Hx Osteoporosis - FAMILY HX OF Sensory History: Reports: Hx Contacts or Glasses, Hx Hearing Aid Opthamlomology History: Reports: Hx Contacts or Glasses Neurological History: Reports: Other Neuro Impairments/Disorders - hx of syncopy r/t hypotension Psychiatric History: Reports: Hx Anxiety, Hx Depression Denies: Hx Panic Disorder - Surgical History Surgery Procedure, Year, and Place: bilat cataract removal 2007- @ [facility] [place]. ulcer removal SX 50 years ago. PROSTATE - PROCEDURE -TURP. STENT place 07/2018 Hx Anesthesia Reactions: No Infectious Disease History: No Infectious Disease History: Reports: Hx Shingles Denies: Hx Hepatitis, Hx Human Immunodeficiency Virus (HIV), History Other Infectious Disease, Traveled Outside the [place] in Last 30 Days - Family History Known Family History: Positive: None, Other - arthritis, pacemaker - Social History Alcohol Use: None Hx Substance Use: No Substance Use Type: Reports: None Hx Tobacco Use: Yes Smoking Status (MU): Former Smoker Have You Smoked in the Last Year: No Review of Systems Negative: Arthralgia Positive: Other - abrasion All Other Systems Reviewed And Are Negative: Yes Physical Exam - Summary Physical Exam Summary: Appearance: The patient is well-nourished in no acute distress and in no acute pain. Skin: The skin is warm and dry, and skin color reflects adequate perfusion. HEENT: The head is normocephalic and atraumatic. The pupils are equal and reactive. The conjunctivae are clear and without drainage. Nares are patent and without drainage. Mouth reveals moist mucous membranes, and the throat is without erythema and exudate. The external ears are intact. The ear canals are patent and without drainage. The tympanic membranes are intact. Neck: The neck is supple with full range of motion and non-tender. There are no carotid bruits. There is no neck vein distension. Respiratory: Chest is non-tender. Lungs are clear to auscultation and breath sounds are symmetrical and equal. Cardiovascular: Heart is regular rate and rhythm. There is no murmur or rub auscultated. There is no peripheral edema and pulses are symmetrical and equal. Abdomen: The abdomen is soft and non-tender. There are normal bowel sounds heard in all four quadrants and there is no organomegaly palpated. Musculoskeletal: There is no back tenderness noted. Extremities are non-tender with full range of motion. There is good capillary refill. There is no peripheral edema or calf tenderness elicited. Superficial abrasions on bilateral palms and right knee. Neurological: Patient is alert and oriented to person, place and time. The patient has symmetrical motor strength in all four extremities. Cranial nerves are grossly intact. Deep tendon reflexes are symmetrical and equal in all four extremities. Psychiatric: The patient has an appropriate affect and does not exhibit any anxiety or depression. Triage Information Reviewed: Yes Vital Signs On Initial Exam: Initial Vitals Temp Pulse Resp BP Pulse Ox 98.3 F 53 16 122/57 93 09/29/19 14:36 09/29/19 14:36 09/29/19 14:36 09/29/19 14:36 09/29/19 14:36 Vital Signs Reviewed: Yes Procedures - Sedation Patient Received Moderate/Deep Sedation with Procedure: No Diagnostics - Vital Signs Vital Signs Temp Pulse Resp BP Pulse Ox 09/29/19 14:36 98.3 F 53 16 122/57 93 - Laboratory Lab Statement: Any lab studies that have been ordered have been reviewed, and results considered in the medical decision making process. Adult Trauma Course/Dx - Course Course Of Treatment: Mr. Diez did not appear to be injured badly and assures me that he merely stepped off the curb improperly and lost his balance. - Diagnoses Provider Diagnoses: Abrasion Discharge ED - Sign-Out/Discharge Documenting (check all that apply): Patient Departure - discharge home - Discharge Plan Condition: Stable Disposition: HOME Patient Education Materials: Abrasion (ED) Referrals: An Dela Cruz MD [Primary Care Provider] - Additional Instructions: Follow up with your primary care provider in 2-3 days. Return to the Emergency Department if you experience new or worsened symptoms. - Billing Disposition and Condition Condition: STABLE Disposition: Home - Attestation Statements Document Initiated by Edinibe: Yes Documenting Scribe: Lion Fields Provider For Whom Rachele is Documenting (Include Credential): Dr. Seht Carpio Scribe Attestation: I, Lion Fields, scribed for Dr. Seth Carpio on 09/29/19 at 2136. Scribe Documentation Reviewed: Yes Provider Attestation: The documentation as recorded by the scribeLion accurately reflects the service I personally performed and the decisions made by me, Dr. Seth Carpio Status of Scribe Document: Viewed
[2019-09-29 17:10] VITALS: BP 157/74
== END 2019-09-29 17:35 | disposition home or self-care (01) ==
LOC: ED 14:25
DX: S60.519A Abrasion of unspecified hand, initial encounter (principal); T14.8XXA Other injury of unspecified body region, initial encounter; W19.XXXA Unspecified fall, initial encounter; Y92.9 Unspecified place or not applicable; I95.9 Hypotension, unspecified; R55 Syncope and collapse; F41.9 Anxiety disorder, unspecified; F32.9 Major depressive disorder, single episode, unspecified; Z79.899 Other long term (current) drug therapy; Z79.82 Long term (current) use of aspirin; Z91.018 Allergy to other foods; Z87.891 Personal history of nicotine dependence; Z79.890 Hormone replacement therapy
CPT/HCPCS: 99282

== ENCOUNTER 2020-12-03 22:38 | Observation (INO) ==
[2020-12-03 23:21] LABS: ABS Eosinophils 0.1 10^3/ul (0-0.6); ABS Lymphocytes 0.5 10^3/ul (1.0-4.8); ABS Monocytes 0.6 10^3/ul (0-0.8); ABS Neutrophils 9.1 10^3/ul (1.5-7.7); Eosinophil % 0.9 %; Hematocrit 38 % (42-52); Hemoglobin 12.4 g/dL (14.0-18.0); Lymphocyte % 4.5 %; Mean Corpuscular HGB Conc 33 g/dL (31-36); Mean Corpuscular Hemoglobin 30 pg (27-31); Mean Corpuscular Volume 90 fL (80-94); Mean Platelet Volume 7.7 fL (7.4-10.4); Platelet Count 164 10^3/uL (150-450); Red Blood Count 4.18 10^6 /uL (4.18-5.48); Red Cell Distribution Width 14 % (10-15); White Blood Count 10.2 10^3/uL (3.5-10.8)
[2020-12-03 23:39] LABS: Albumin 4.1 g/dL (3.2-5.2); Albumin/Globulin Ratio 1.8 (1-3); Calcium 8.8 mg/dL (8.6-10.3); EGFR African American 80.5 (>60); EGFR Non-African American 66.6 (>60); Globulin 2.3 g/dL (2-4); Magnesium 2.5 mg/dL (1.9-2.7); Potassium 4.4 mmol/L (3.5-5.0); Total Bilirubin 0.3 mg/dL (0.2-1.0); Total Protein 6.4 g/dL (6.4-8.9)
[2020-12-03 23:54] LABS: TSH Ultra Thyroid Stim Horm 2.54 mcIU/mL (0.34-5.60)
[2020-12-04] MEDS: Lidocaine PATCH 5% PATCH TRANSDERM SCH (05:32)
[2020-12-04 05:47] LABS: ABS Lymphocytes 0.7 10^3/ul (1.0-4.8); ABS Monocytes 0.5 10^3/ul (0-0.8); ABS Neutrophils 4.7 10^3/ul (1.5-7.7); Eosinophil % 0.8 %; Hematocrit 33 % (42-52); Hemoglobin 10.8 g/dL (14.0-18.0); Lymphocyte % 11.5 %; Mean Corpuscular HGB Conc 33 g/dL (31-36); Mean Corpuscular Hemoglobin 30 pg (27-31); Mean Corpuscular Volume 89 fL (80-94); Mean Platelet Volume 7.7 fL (7.4-10.4); Platelet Count 141 10^3/uL (150-450); Red Blood Count 3.68 10^6 /uL (4.18-5.48); Red Cell Distribution Width 14 % (10-15); White Blood Count 5.9 10^3/uL (3.5-10.8)
[2020-12-04 05:54] LABS: Activated Partial Thrombo Time 27.1 seconds (26.0-38.0); INR 1.12 (0.82-1.09)
[2020-12-04 06:00] LABS: Troponin I 0.01 ng/mL (<0.03)
[2020-12-04 06:04] LABS: ALT 44 U/L (7-52); AST 37 U/L (13-39); Albumin 3.4 g/dL (3.2-5.2); Albumin/Globulin Ratio 1.9 (1-3); Alkaline Phosphatase 65 U/L (35-149); Anion Gap 5 mmol/L (2-11); Blood Urea Nitrogen 18 mg/dL (6-24); CO2 Carbon Dioxide 26 mmol/L (22-32); Calcium 8.2 mg/dL (8.6-10.3); Chloride 107 mmol/L (101-111); EGFR African American 86.1 (>60); EGFR Non-African American 71.2 (>60); Globulin 1.8 g/dL (2-4); Glucose 104 mg/dL (70-100); Potassium 3.9 mmol/L (3.5-5.0); Sodium 138 mmol/L (135-145); Total Protein 5.2 g/dL (6.4-8.9)
[2020-12-04] MEDS: Heparin 5000 UNITS/ML 1 mL VIAL SUBCUT SCH ×3 (06:15→21:16)
[2020-12-04] MEDS ORDERED: Perflutren Lipid Microsphere 3 ML VIAL ONE (08:07)
[2020-12-04] MEDS: Calcium/Vitamin D TAB 250/125 TAB PO SCH (08:43)
[2020-12-04] MEDS: Aspirin EC 81 mg TAB.EC (enteric coated) PO SCH (08:43)
[2020-12-04 16:20] LABS: Hematocrit 34 % (42-52); Hemoglobin 11.3 g/dL (14.0-18.0)
[2020-12-04] MEDS ORDERED: Lidocaine Patch REMOVE PATCH PATCH OFF SCH (17:00)
[2020-12-04] MEDS ORDERED: Senna TAB 8.6 mg TAB PO PRN (17:09)
[2020-12-04] MEDS ORDERED: Polyethylene Glycol 3350 17 GM PACKET PO PRN (17:09)
[2020-12-04] MEDS ORDERED: Magnesium Hydroxide LIQ 30 ML UDC PO PRN (17:09)
[2020-12-05 04:51] LABS: Urine Appearance Cloudy; Urine Bilirubin Negative (Negative); Urine Blood 1+ (Negative); Urine Color Yellow; Urine Glucose 2+(150 mg/dL) (Negative); Urine Ketones Negative (Negative); Urine Nitrite Positive (Negative); Urine Protein Negative (Negative); Urine Specific Gravity 1.008 (1.002-1.030); Urine Urobilinogen Negative (Negative)
[2020-12-05 05:14] LABS: Urine Bacteria Absent (Absent); Urine Red Blood Cell Trace(0-2/hpf) (Absent); Urine White Blood Cell 3+(>20/hpf) (Absent)
[2020-12-05] MEDS: Heparin 5000 UNITS/ML 1 mL VIAL SUBCUT SCH ×2 (05:18→12:03)
[2020-12-05 05:56] LABS: ABS Eosinophils 0.1 10^3/ul (0-0.6); ABS Lymphocytes 0.6 10^3/ul (1.0-4.8); ABS Monocytes 0.4 10^3/ul (0-0.8); Eosinophil % 2.6 %; Hematocrit 36 % (42-52); Lymphocyte % 13.9 %; Mean Corpuscular HGB Conc 33 g/dL (31-36); Mean Corpuscular Hemoglobin 30 pg (27-31); Mean Corpuscular Volume 89 fL (80-94); Mean Platelet Volume 7.8 fL (7.4-10.4); Platelet Count 146 10^3/uL (150-450); Red Blood Count 4.03 10^6 /uL (4.18-5.48); Red Cell Distribution Width 14 % (10-15); White Blood Count 4.1 10^3/uL (3.5-10.8)
[2020-12-05] MEDS: Lidocaine PATCH 5% PATCH TRANSDERM SCH (07:31)
[2020-12-05] MEDS: Aspirin EC 81 mg TAB.EC (enteric coated) PO SCH (07:32)
[2020-12-05] MEDS: Calcium/Vitamin D TAB 250/125 TAB PO SCH (07:32)
[2020-12-05 07:37] VITALS: BP 113/54
== END 2020-12-05 12:50 | disposition home or self-care (01) ==
LOC: ED 22:38 → MEDTELE 22:38
PROVIDERS: ADMIT Internal Medicine; ATTEND Student in an Organized Health Care Education/Training Program

== ENCOUNTER 2022-07-30 18:50 | Inpatient (IN) ==
[2022-07-30] MEDS ORDERED: NS 0.9% 1000 ml BAG 1,000 ML IV ONE (19:20)
[2022-07-30 20:00] LABS: ABS Lymphocytes 0.2 10^3/ul (1.0-4.8); ABS Monocytes 0.5 10^3/ul (0-0.8); ABS Neutrophils 10.2 10^3/ul (1.5-7.7); Hematocrit 36 % (42-52); Hemoglobin 11.3 g/dL (14.0-18.0); Lymphocyte % 1.9 %; Mean Corpuscular HGB Conc 31 g/dL (31-36); Mean Corpuscular Hemoglobin 27 pg (27-31); Mean Corpuscular Volume 86 fL (80-94); Mean Platelet Volume 7.7 fL (7.4-10.4); Platelet Count 125 10^3/uL (150-450); Red Blood Count 4.25 10^6 /uL (4.18-5.48); Red Cell Distribution Width 16 % (10-15); White Blood Count 10.9 10^3/uL (3.5-10.8)
[2022-07-30 20:13] LABS: INR 1.24 (0.88-1.18)
[2022-07-30 20:40] LABS: Albumin 3.9 g/dL (3.2-5.2); Albumin/Globulin Ratio 1.9 (1-3); Calcium 8.3 mg/dL (8.6-10.3); Creatinine, Serum 1.2 mg/dL (0.67-1.17); Globulin 2.1 g/dL (2-4); Magnesium 2.3 mg/dL (1.9-2.7); Potassium 3.9 mmol/L (3.5-5.0); Total Bilirubin 0.6 mg/dL (0.2-1.0); eGFR CKD-EPI 58.9 (>60)
[2022-07-30] MEDS ORDERED: Lactated Ringers 1000 ml BAG 1,000 ML IV ONE (20:43)
[2022-07-30 20:52] LABS: TSH Ultra Thyroid Stim Horm 5.66 mcIU/mL (0.34-5.60)
[2022-07-30 21:18] LABS: High Sensitivity Troponin 1 Hr 119 pg/mL (<20)
[2022-07-30 22:25] LABS: High Sensitivity Troponin 3 Hr 117 pg/mL (<20)
[2022-07-30 22:57] LABS: C Reactive Protein 73.75 mg/L (<8.01)
[2022-07-30 23:15] LABS: Free T4 0.92 ng/dL (0.61-1.12)
[2022-07-31 06:18] LABS: Urine Appearance Cloudy; Urine Bilirubin Negative (Negative); Urine Blood Negative (Negative); Urine Color Yellow; Urine Glucose Negative (Negative); Urine Ketones Negative (Negative); Urine Nitrite Positive (Negative); Urine Protein Negative (Negative); Urine Urobilinogen Negative (Negative)
[2022-07-31 06:49] LABS: Urine Bacteria 1+ (Absent); Urine Red Blood Cell Trace(0-2/hpf) (Absent); Urine Squamous Epithelial Cell Present (Absent); Urine White Blood Cell 2+(11-20/hpf) (Absent)
[2022-07-31 07:41] LABS: ABS Lymphocytes 0.3 10^3/ul (1.0-4.8); ABS Monocytes 0.6 10^3/ul (0-0.8); ABS Neutrophils 6.5 10^3/ul (1.5-7.7); Eosinophil % 0.1 %; Hematocrit 34 % (42-52); Hemoglobin 10.8 g/dL (14.0-18.0); Lymphocyte % 4.4 %; Mean Corpuscular HGB Conc 32 g/dL (31-36); Mean Corpuscular Hemoglobin 27 pg (27-31); Mean Corpuscular Volume 85 fL (80-94); Red Blood Count 4.02 10^6 /uL (4.18-5.48); Red Cell Distribution Width 15 % (10-15); White Blood Count 7.4 10^3/uL (3.5-10.8)
[2022-07-31] MEDS ORDERED: CMCS: Lactase Enzyme (NF) 3,000 UNIT TAB PO PRN (08:00)
[2022-07-31 08:31] LABS: Calcium 7.9 mg/dL (8.6-10.3); Creatinine, Serum 1.05 mg/dL (0.67-1.17); Potassium 3.9 mmol/L (3.5-5.0); eGFR CKD-EPI 69.1 (>60)
[2022-07-31] MEDS: Multivitamins/Minerals TAB PO SCH (10:13)
[2022-07-31] MEDS: Enoxaparin 40 MG/0.4 ML SYR SUBCUT SCH (10:14)
[2022-07-31] MEDS: Aspirin EC 81 mg TAB.EC (enteric coated) PO SCH (10:14)
[2022-07-31] MEDS: Isosorbide Mononit ER 30mg TAB PO SCH (10:14)
[2022-07-31 10:15] LABS: Mean Platelet Volume 7.7 fL (7.4-10.4); Platelet Count 97 10^3/uL (150-450)
[2022-07-31] MEDS ORDERED: NS 0.9% 500 ml BAG 500 ML IV ONE (15:29)
[2022-07-31] MEDS: NS 0.9% 1000 ml BAG 1,000 ML IV SCH ×3 (15:46→23:58)
[2022-07-31] MEDS: cefTRIAXone 2 gm/50 mL D5W 2 GM/50 ML BAG IV SCH (15:46)
[2022-07-31] MEDS: Fluticasone NASAL SPRAY 50MCG 16 gm SPRAY BTL INTRANASAL SCH (17:22)
[2022-07-31] MEDS: Acetaminophen IV 1 GM/100ML 1,000 MG/100 ML BAG IV PRN (23:00)
[2022-08-01] MEDS: Docusate LIQ 100 MG/10 ML UDC PO SCH ×2 (05:27→20:12)
[2022-08-01 06:52] LABS: ABS Lymphocytes 0.3 10^3/ul (1.0-4.8); ABS Monocytes 0.5 10^3/ul (0-0.8); ABS Neutrophils 4.1 10^3/ul (1.5-7.7); Hematocrit 31 % (42-52); Lymphocyte % 5.7 %; Mean Corpuscular HGB Conc 32 g/dL (31-36); Mean Corpuscular Hemoglobin 27 pg (27-31); Mean Corpuscular Volume 85 fL (80-94); Mean Platelet Volume 7.8 fL (7.4-10.4); Platelet Count 80 10^3/uL (150-450); Red Blood Count 3.67 10^6 /uL (4.18-5.48); Red Cell Distribution Width 15 % (10-15); White Blood Count 4.9 10^3/uL (3.5-10.8)
[2022-08-01 07:35] LABS: Calcium 7.2 mg/dL (8.6-10.3); Creatinine, Serum 0.94 mg/dL (0.67-1.17); Potassium 3.6 mmol/L (3.5-5.0); eGFR CKD-EPI 78.9 (>60)
[2022-08-01] MEDS: Enoxaparin 40 MG/0.4 ML SYR SUBCUT SCH (12:32)
[2022-08-01] MEDS: Multivitamins/Minerals TAB PO SCH (12:32)
[2022-08-01] MEDS: Aspirin EC 81 mg TAB.EC (enteric coated) PO SCH (12:32)
[2022-08-01] MEDS: Isosorbide Mononit ER 30mg TAB PO SCH (12:32)
[2022-08-01] MEDS: cefTRIAXone 2 gm/50 mL D5W 2 GM/50 ML BAG IV SCH (16:35)
[2022-08-01] MEDS: Fluticasone NASAL SPRAY 50MCG 16 gm SPRAY BTL INTRANASAL SCH (16:35)
[2022-08-01] MEDS: Polyethylene Glycol 3350 17 GM PACKET PO SCH (20:12)
[2022-08-01] MEDS: Acetaminophen IV 1 GM/100ML 1,000 MG/100 ML BAG IV PRN (21:19)
[2022-08-02] MEDS ORDERED: Magnesium Hydroxide LIQ 30 ML UDC PO ONE (00:23)
[2022-08-02 06:46] LABS: ABS Lymphocytes 0.3 10^3/ul (1.0-4.8); ABS Monocytes 0.5 10^3/ul (0-0.8); ABS Neutrophils 2.5 10^3/ul (1.5-7.7); Eosinophil % 0.6 %; Hematocrit 31 % (42-52); Lymphocyte % 10.3 %; Mean Corpuscular HGB Conc 33 g/dL (31-36); Mean Corpuscular Hemoglobin 27 pg (27-31); Mean Corpuscular Volume 84 fL (80-94); Mean Platelet Volume 8.2 fL (7.4-10.4); Nucleated Red Blood Cells % 0.2; Platelet Count 85 10^3/uL (150-450); Red Blood Count 3.67 10^6 /uL (4.18-5.48); Red Cell Distribution Width 15 % (10-15); White Blood Count 3.3 10^3/uL (3.5-10.8)
[2022-08-02 06:59] LABS: C Reactive Protein 97.03 mg/L (<8.01); Calcium 7.5 mg/dL (8.6-10.3); Creatinine, Serum 0.96 mg/dL (0.67-1.17); Potassium 3.8 mmol/L (3.5-5.0)
[2022-08-02] MEDS: Multivitamins/Minerals TAB PO SCH (09:26)
[2022-08-02] MEDS: Polyethylene Glycol 3350 17 GM PACKET PO SCH (09:26)
[2022-08-02] MEDS: Aspirin EC 81 mg TAB.EC (enteric coated) PO SCH (09:26)
[2022-08-02] MEDS: Enoxaparin 40 MG/0.4 ML SYR SUBCUT SCH (09:26)
[2022-08-02] MEDS: Isosorbide Mononit ER 30mg TAB PO SCH (09:27)
[2022-08-02] MEDS: Fluticasone NASAL SPRAY 50MCG 16 gm SPRAY BTL INTRANASAL SCH (12:32)
[2022-08-02] MEDS: cefTRIAXone 2 gm/50 mL D5W 2 GM/50 ML BAG IV SCH (14:49)
[2022-08-02] MEDS: Acetaminophen IV 1 GM/100ML 1,000 MG/100 ML BAG IV PRN (20:21)
[2022-08-02] MEDS: Docusate LIQ 100 MG/10 ML UDC PO SCH (20:22)
[2022-08-03 06:53] LABS: ABS Lymphocytes 0.4 10^3/ul (1.0-4.8); ABS Monocytes 0.5 10^3/ul (0-0.8); ABS Neutrophils 3.2 10^3/ul (1.5-7.7); Eosinophil % 0.8 %; Hematocrit 32 % (42-52); Hemoglobin 10.5 g/dL (14.0-18.0); Lymphocyte % 9.4 %; Mean Corpuscular HGB Conc 33 g/dL (31-36); Mean Corpuscular Hemoglobin 27 pg (27-31); Mean Corpuscular Volume 82 fL (80-94); Mean Platelet Volume 7.8 fL (7.4-10.4); Nucleated Red Blood Cells % 0.1; Platelet Count 95 10^3/uL (150-450); Red Blood Count 3.87 10^6 /uL (4.18-5.48); Red Cell Distribution Width 15 % (10-15); White Blood Count 4.1 10^3/uL (3.5-10.8)
[2022-08-03 07:18] LABS: Calcium 7.9 mg/dL (8.6-10.3); Creatinine, Serum 0.93 mg/dL (0.67-1.17); Potassium 4.1 mmol/L (3.5-5.0)
[2022-08-03] MEDS: Enoxaparin 40 MG/0.4 ML SYR SUBCUT SCH (08:27)
[2022-08-03] MEDS: Aspirin EC 81 mg TAB.EC (enteric coated) PO SCH (08:27)
[2022-08-03] MEDS: Polyethylene Glycol 3350 17 GM PACKET PO SCH (08:27)
[2022-08-03] MEDS: Multivitamins/Minerals TAB PO SCH (08:27)
[2022-08-03] MEDS: Isosorbide Mononit ER 30mg TAB PO SCH (08:27)
[2022-08-03] MEDS: Fluticasone NASAL SPRAY 50MCG 16 gm SPRAY BTL INTRANASAL SCH (08:29)
[2022-08-03 11:44] LABS: Urine Appearance Clear; Urine Bilirubin Negative (Negative); Urine Blood Negative (Negative); Urine Color Yellow; Urine Glucose Negative (Negative); Urine Ketones Negative (Negative); Urine Nitrite Negative (Negative); Urine Protein Negative (Negative); Urine Specific Gravity 1.009 (1.002-1.030); Urine Urobilinogen Negative (Negative)
[2022-08-03] MEDS: cefTRIAXone 2 gm/50 mL D5W 2 GM/50 ML BAG IV SCH (15:15)
[2022-08-03] MEDS: Docusate LIQ 100 MG/10 ML UDC PO SCH (21:51)
[2022-08-04] MEDS: Multivitamins/Minerals TAB PO SCH (10:30)
[2022-08-04] MEDS: Aspirin EC 81 mg TAB.EC (enteric coated) PO SCH (10:30)
[2022-08-04] MEDS: Enoxaparin 40 MG/0.4 ML SYR SUBCUT SCH (10:30)
[2022-08-04] MEDS: Polyethylene Glycol 3350 17 GM PACKET PO SCH (10:30)
[2022-08-04] MEDS: Isosorbide Mononit ER 30mg TAB PO SCH (10:30)
[2022-08-04] MEDS: Fluticasone NASAL SPRAY 50MCG 16 gm SPRAY BTL INTRANASAL SCH (11:25)
[2022-08-04] MEDS: cefTRIAXone 2 gm/50 mL D5W 2 GM/50 ML BAG IV SCH (15:01)
[2022-08-04] MEDS: Docusate LIQ 100 MG/10 ML UDC PO SCH (22:04)
[2022-08-04] MEDS: Acetaminophen IV 1 GM/100ML 1,000 MG/100 ML BAG IV PRN (22:17)
[2022-08-05 06:34] LABS: ABS Eosinophils 0.1 10^3/ul (0-0.6); ABS Lymphocytes 0.5 10^3/ul (1.0-4.8); ABS Monocytes 0.7 10^3/ul (0-0.8); ABS Neutrophils 4.7 10^3/ul (1.5-7.7); Eosinophil % 1.5 %; Hematocrit 32 % (42-52); Hemoglobin 10.5 g/dL (14.0-18.0); Lymphocyte % 8.4 %; Mean Corpuscular HGB Conc 32 g/dL (31-36); Mean Corpuscular Hemoglobin 27 pg (27-31); Mean Corpuscular Volume 83 fL (80-94); Mean Platelet Volume 7.8 fL (7.4-10.4); Platelet Count 126 10^3/uL (150-450); Red Blood Count 3.91 10^6 /uL (4.18-5.48); Red Cell Distribution Width 15 % (10-15)
[2022-08-05 06:52] LABS: Creatinine, Serum 0.95 mg/dL (0.67-1.17); Potassium 4.1 mmol/L (3.5-5.0)
[2022-08-05] MEDS: Polyethylene Glycol 3350 17 GM PACKET PO SCH (08:31)
[2022-08-05] MEDS: Multivitamins/Minerals TAB PO SCH (08:31)
[2022-08-05] MEDS: Isosorbide Mononit ER 30mg TAB PO SCH (08:31)
[2022-08-05] MEDS: Enoxaparin 40 MG/0.4 ML SYR SUBCUT SCH (08:31)
[2022-08-05] MEDS: Aspirin EC 81 mg TAB.EC (enteric coated) PO SCH (08:31)
[2022-08-05] MEDS: Fluticasone NASAL SPRAY 50MCG 16 gm SPRAY BTL INTRANASAL SCH (08:31)
[2022-08-05 09:10] LABS: Rapid COVID-19 Molecular Undetected (Undetected)
[2022-08-05] MEDS ORDERED: Sodium Phosphate ADULT ENEMA 133 ML BTL PR PRN (10:54)
[2022-08-05] MEDS ORDERED: Senna TAB 8.6 mg TAB PO PRN (10:54)
[2022-08-05] MEDS ORDERED: Polyethylene Glycol 3350 17 GM PACKET PO PRN (10:54)
[2022-08-05] MEDS ORDERED: Magnesium Hydroxide LIQ 30 ML UDC PO PRN (10:54)
[2022-08-05 12:16] VITALS: BP 109/54
== END 2022-08-05 12:20 | DRG 690 ==
LOC: ED 18:50 → EDHOLD 18:50 → SUATTDRO 22:05 → MEDTELE 07-31 00:10 → SUATTDRO 08-01 22:00 → MEDTELE 08-03 21:44
PROVIDERS: ADMIT Internal Medicine; ATTEND Student in an Organized Health Care Education/Training Program

== ENCOUNTER 2022-08-31 12:04 | Inpatient (IN) ==
[2022-08-31 13:28] LABS: ABS Basophils 0.1 10^3/ul (0-0.2); ABS Lymphocytes 0.6 10^3/ul (1.0-4.8); ABS Monocytes 0.8 10^3/ul (0-0.8); ABS Neutrophils 7.5 10^3/ul (1.5-7.7); Hematocrit 34 % (42-52); Hemoglobin 10.7 g/dL (14.0-18.0); Lymphocyte % 6.3 %; Mean Corpuscular HGB Conc 32 g/dL (31-36); Mean Corpuscular Hemoglobin 26 pg (27-31); Mean Corpuscular Volume 84 fL (80-94); Mean Platelet Volume 7.9 fL (7.4-10.4); Nucleated Red Blood Cells % 0.1; Platelet Count 125 10^3/uL (150-450); Red Blood Count 4.03 10^6 /uL (4.18-5.48); Red Cell Distribution Width 16 % (10-15); White Blood Count 8.9 10^3/uL (3.5-10.8)
[2022-08-31 14:39] LABS: TSH Ultra Thyroid Stim Horm 4.25 mcIU/mL (0.34-5.60)
[2022-08-31 14:47] LABS: Urine Appearance Cloudy; Urine Bilirubin Negative (Negative); Urine Blood 1+ (Negative); Urine Color Yellow; Urine Glucose Negative (Negative); Urine Ketones 1+ (Negative); Urine Nitrite Negative (Negative); Urine Protein Negative (Negative); Urine Specific Gravity 1.012 (1.002-1.030); Urine Urobilinogen Negative (Negative)
[2022-08-31 14:50] LABS: Urine Bacteria Absent (Absent); Urine Red Blood Cell 2+(6-10/hpf) (Absent); Urine White Blood Cell 3+(>20/hpf) (Absent)
[2022-08-31 14:55] LABS: Albumin 3.7 g/dL (3.2-5.2); Albumin/Globulin Ratio 1.6 (1-3); C Reactive Protein 57.33 mg/L (<8.01); Calcium 8.1 mg/dL (8.6-10.3); Globulin 2.3 g/dL (2-4); Magnesium 2.2 mg/dL (1.9-2.7); Total Bilirubin 0.7 mg/dL (0.2-1.0); eGFR CKD-EPI 73.3 (>60)
[2022-08-31] MEDS ORDERED: cefTRIAXone 1 gm/50 mL D5W 1 GM/50 ML BAG IV ONE (16:10)
[2022-08-31] MEDS ORDERED: Lactated Ringers 1000 ml BAG 1,000 ML IV ONE (17:02)
[2022-08-31] MEDS: Enoxaparin 40 MG/0.4 ML SYR SUBCUT SCH (18:05)
[2022-09-01 04:47] LABS: ABS Lymphocytes 0.5 10^3/ul (1.0-4.8); ABS Monocytes 0.9 10^3/ul (0-0.8); ABS Neutrophils 7.6 10^3/ul (1.5-7.7); Hematocrit 34 % (42-52); Lymphocyte % 5.5 %; Mean Corpuscular HGB Conc 33 g/dL (31-36); Mean Corpuscular Hemoglobin 27 pg (27-31); Mean Corpuscular Volume 83 fL (80-94); Mean Platelet Volume 7.8 fL (7.4-10.4); Platelet Count 108 10^3/uL (150-450); Red Blood Count 4.04 10^6 /uL (4.18-5.48); Red Cell Distribution Width 17 % (10-15)
[2022-09-01 05:17] LABS: Calcium 8.2 mg/dL (8.6-10.3); Potassium 3.8 mmol/L (3.5-5.0); eGFR CKD-EPI 73.3 (>60)
[2022-09-01] MEDS: Docusate LIQ 100 MG/10 ML UDC PO SCH ×2 (06:14→21:08)
[2022-09-01] MEDS: Isosorbide Mononit ER 30mg TAB PO SCH (08:48)
[2022-09-01] MEDS: Aspirin EC 81 mg TAB.EC (enteric coated) PO SCH (08:48)
[2022-09-01] MEDS: Polyethylene Glycol 3350 17 GM PACKET PO SCH (08:48)
[2022-09-01] MEDS ORDERED: Cefepime 1 GM in Dextrose 1 GM/50 ML BAG IV SCH (15:00)
[2022-09-01] MEDS: Enoxaparin 40 MG/0.4 ML SYR SUBCUT SCH (16:11)
[2022-09-01] MEDS: Cefepime 1 GM in Dextrose 1 GM/50 ML BAG IV SCH (16:11)
[2022-09-01] MEDS ORDERED: cefTRIAXone 1 gm/50 mL D5W 1 GM/50 ML BAG IV SCH (18:00)
[2022-09-02] MEDS: Cefepime 1 GM in Dextrose 1 GM/50 ML BAG IV SCH ×2 (02:58→14:37)
[2022-09-02 06:27] LABS: ABS Lymphocytes 0.6 10^3/ul (1.0-4.8); ABS Monocytes 0.9 10^3/ul (0-0.8); ABS Neutrophils 5.2 10^3/ul (1.5-7.7); Eosinophil % 0.2 %; Hematocrit 35 % (42-52); Lymphocyte % 8.6 %; Mean Corpuscular HGB Conc 32 g/dL (31-36); Mean Corpuscular Hemoglobin 27 pg (27-31); Mean Corpuscular Volume 84 fL (80-94); Mean Platelet Volume 7.9 fL (7.4-10.4); Platelet Count 112 10^3/uL (150-450); Red Cell Distribution Width 17 % (10-15); White Blood Count 6.7 10^3/uL (3.5-10.8)
[2022-09-02 06:45] LABS: Calcium 7.8 mg/dL (8.6-10.3); Magnesium 2.1 mg/dL (1.9-2.7); Potassium 3.9 mmol/L (3.5-5.0)
[2022-09-02 06:50] LABS: Creatinine, Serum 0.96 mg/dL (0.67-1.17)
[2022-09-02] MEDS: Isosorbide Mononit ER 30mg TAB PO SCH (10:04)
[2022-09-02] MEDS: Polyethylene Glycol 3350 17 GM PACKET PO SCH (10:05)
[2022-09-02] MEDS: Aspirin EC 81 mg TAB.EC (enteric coated) PO SCH (10:05)
[2022-09-02] MEDS: Enoxaparin 40 MG/0.4 ML SYR SUBCUT SCH (15:36)
[2022-09-02] MEDS: Docusate LIQ 100 MG/10 ML UDC PO SCH (20:09)
[2022-09-03] MEDS: Cefepime 1 GM in Dextrose 1 GM/50 ML BAG IV SCH (04:35)
[2022-09-03 06:16] LABS: ABS Lymphocytes 0.5 10^3/ul (1.0-4.8); ABS Monocytes 0.4 10^3/ul (0-0.8); Eosinophil % 1.1 %; Hematocrit 33 % (42-52); Hemoglobin 10.4 g/dL (14.0-18.0); Lymphocyte % 11.6 %; Mean Corpuscular HGB Conc 32 g/dL (31-36); Mean Corpuscular Hemoglobin 26 pg (27-31); Mean Corpuscular Volume 82 fL (80-94); Mean Platelet Volume 7.8 fL (7.4-10.4); Platelet Count 124 10^3/uL (150-450); Red Blood Count 3.95 10^6 /uL (4.18-5.48); Red Cell Distribution Width 17 % (10-15); White Blood Count 3.9 10^3/uL (3.5-10.8)
[2022-09-03 06:26] LABS: Calcium 7.9 mg/dL (8.6-10.3); Magnesium 2.3 mg/dL (1.9-2.7); Potassium 4.1 mmol/L (3.5-5.0); eGFR CKD-EPI 73.3 (>60)
[2022-09-03] MEDS: Polyethylene Glycol 3350 17 GM PACKET PO SCH (09:42)
[2022-09-03] MEDS: Aspirin EC 81 mg TAB.EC (enteric coated) PO SCH (09:42)
[2022-09-03] MEDS: Isosorbide Mononit ER 30mg TAB PO SCH (09:42)
[2022-09-03 10:20] LABS: Rapid COVID-19 Molecular Undetected (Undetected)
[2022-09-03 11:28] VITALS: BP 128/68
== END 2022-09-03 13:20 | DRG 71 ==
LOC: ED 12:04 → EDHOLD 12:04 → SUATTDRO 16:14 → EDHOLD 09-01 09:45 → MED 09-01 11:48 → SUATTDRO 09-02 15:45
PROVIDERS: ADMIT Internal Medicine; ATTEND Internal Medicine Hematology & Oncology

== ENCOUNTER 2023-09-19 23:06 | Inpatient (IN) ==
[2023-09-20 00:30] LABS: Hematocrit 39.7 % (38-53); Hemoglobin 13.2 g/dL (13.2-16.3); Mean Corpuscular Hemoglobin 30.8 pg (27-33); Mean Corpuscular Hgb Conc 33.4 g/dL (31-36); Mean Corpuscular Volume 92.2 fL (80-97); Mean Platelet Volume 8.4 fL (7.5-11.2); Platelet Count 144 10^3/uL (150-450); Red Cell Distribution Width 14.1 % (12-17); White Blood Count 8.7 10^3/uL (3.6-10.2)
[2023-09-20 00:57] LABS: Albumin 4.1 g/dL (3.2-5.2); Albumin/Globulin Ratio 2.1 (1-3); C Reactive Protein 6.93 mg/L (<8.01); Calcium 8.5 mg/dL (8.6-10.3); Creatinine, Serum 1.12 mg/dL (0.67-1.17); Magnesium 2.1 mg/dL (1.9-2.7); Potassium 4.5 mmol/L (3.5-5.0); Total Bilirubin 0.6 mg/dL (0.2-1.0); Total Protein 6.1 g/dL (6.4-8.9); eGFR CKD-EPI 63.6 (>60)
[2023-09-20 00:58] LABS: ABS Lymphocytes 0.3 10^3/uL (1.0-4.8); ABS Monocytes 0.2 10^3/uL (0.0-1.1); ABS Neutrophils 8.1 10^3/uL (1.5-7.6); Eosinophil % 0.2 %; RBC Morphology Normal (Normal)
[2023-09-20] MEDS: Lactated Ringers 1000 ml BAG 1,000 ML IV ONE ×2 (02:09→05:51)
[2023-09-20] MEDS: Iohexol 300 (CONTRAST) 10 ML SDV IV ONE (02:37)
[2023-09-20 08:18] LABS: Urine Appearance Clear; Urine Bilirubin Negative (Negative); Urine Blood Negative (Negative); Urine Color Light-Yellow; Urine Glucose Negative (Negative); Urine Ketones Negative (Negative); Urine Nitrite 2+ (Negative); Urine Protein Negative (Negative); Urine Specific Gravity 1.028 (1.002-1.030); Urine Urobilinogen Negative (Negative)
[2023-09-20 08:25] LABS: Urine Bacteria Absent /HPF (Absent); Urine Red Blood Cell Trace(0-2/hpf) /HPF (0-Trace); Urine White Blood Cell 1+(6-10/hpf) /HPF (0-Trace)
[2023-09-20] MEDS: Enoxaparin 30 MG/0.3 ML SYR SUBCUT SCH (09:18)
[2023-09-20] MEDS: Isosorbide Mononit ER 30mg TAB PO SCH (09:19)
[2023-09-20] MEDS: Aspirin EC 81 mg TAB.EC (enteric coated) PO SCH (09:19)
[2023-09-20] MEDS: NS 0.9% 1000 ml BAG 1,000 ML IV SCH (13:38)
[2023-09-21 07:53] LABS: Calcium 7.1 mg/dL (8.6-10.3); Creatinine, Serum 1.17 mg/dL (0.67-1.17); Potassium 3.2 mmol/L (3.5-5.0); eGFR CKD-EPI 60.3 (>60)
[2023-09-21 07:58] LABS: Hematocrit 33.2 % (38-53); Hemoglobin 11.2 g/dL (13.2-16.3); Mean Corpuscular Hemoglobin 31.1 pg (27-33); Mean Corpuscular Hgb Conc 33.8 g/dL (31-36); Mean Corpuscular Volume 92.1 fL (80-97); Red Cell Distribution Width 14.6 % (12-17); White Blood Count 9.1 10^3/uL (3.6-10.2)
[2023-09-21 08:48] LABS: Magnesium 1.8 mg/dL (1.9-2.7)
[2023-09-21 08:57] LABS: ABS Lymphocytes 0.3 10^3/uL (1.0-4.8); ABS Monocytes 0.5 10^3/uL (0.0-1.1); ABS Neutrophils 8.3 10^3/uL (1.5-7.6); Lymphocyte % 2.9 %; Mean Platelet Volume 8.5 fL (7.5-11.2); Platelet Count 74 10^3/uL (150-450)
[2023-09-21] MEDS: KCL 20 MEQ/100 ML IVPREMIX 20 MEQ/100 ML BAG IV SCH (09:26)
[2023-09-21] MEDS: Magnesium Sulfate 2 gm BAG 2 GM/50 ML BAG IVPB ONE (13:15)
[2023-09-21] MEDS: cefTRIAXone 1 gm/50 mL D5W 1 GM/50 ML BAG IV SCH (14:46)
[2023-09-21] MEDS ORDERED: Dextran 70/Hypromellose Tears Eye Drops 15 ml BTL (for Artificials Tears) BOTH EYES PRN (16:21)
[2023-09-21] MEDS: Azithromycin 500 mg/250 ml NS 500 MG/250 ML BAG IVPB SCH (18:32)
[2023-09-22 07:42] LABS: Calcium 7.1 mg/dL (8.6-10.3); Creatinine, Serum 1.19 mg/dL (0.67-1.17); Magnesium 2.4 mg/dL (1.9-2.7); Potassium 3.8 mmol/L (3.5-5.0); eGFR CKD-EPI 59.1 (>60)
[2023-09-22 08:00] LABS: ABS Lymphocytes 0.4 10^3/uL (1.0-4.8); ABS Monocytes 0.6 10^3/uL (0.0-1.1); ABS Neutrophils 9.1 10^3/uL (1.5-7.6); Eosinophil % 0.3 %; Hematocrit 33.6 % (38-53); Hemoglobin 11.4 g/dL (13.2-16.3); Lymphocyte % 3.7 %; Mean Corpuscular Hgb Conc 33.9 g/dL (31-36); Mean Corpuscular Volume 91.4 fL (80-97); Platelet Count 68 10^3/uL (150-450); Red Blood Count 3.68 10^6/uL (4.06-5.63); Red Cell Distribution Width 14.3 % (12-17); White Blood Count 10.1 10^3/uL (3.6-10.2)
[2023-09-22 20:50] LABS: HIT ELISA < 0.050 OD (<0.400); Heparin PF4 Antibody Interp Negative (Negative)
[2023-09-23 06:13] LABS: Creatinine, Serum 1.17 mg/dL (0.67-1.17); Potassium 3.6 mmol/L (3.5-5.0); eGFR CKD-EPI 60.3 (>60)
[2023-09-23 07:29] LABS: ABS Lymphocytes 0.5 10^3/uL (1.0-4.8); ABS Monocytes 0.7 10^3/uL (0.0-1.1); ABS Neutrophils 7.3 10^3/uL (1.5-7.6); Hematocrit 32.3 % (38-53); Hemoglobin 11.3 g/dL (13.2-16.3); Mean Corpuscular Hemoglobin 31.6 pg (27-33); Mean Corpuscular Volume 90.3 fL (80-97); Mean Platelet Volume 8.5 fL (7.5-11.2); Platelet Count 54 10^3/uL (150-450); Red Blood Count 3.57 10^6/uL (4.06-5.63); Red Cell Distribution Width 14.3 % (12-17); White Blood Count 8.4 10^3/uL (3.6-10.2)
[2023-09-23] MEDS: DOXYcycline 100 MG in NS 0.9% 250 ml 250 ML IVPB SCH (17:46)
[2023-09-24 07:44] LABS: ABS Lymphocytes 0.4 10^3/uL (1.0-4.8); ABS Monocytes 0.7 10^3/uL (0.0-1.1); ABS Neutrophils 6.5 10^3/uL (1.5-7.6); Eosinophil % 0.5 %; Hematocrit 33.1 % (38-53); Hemoglobin 11.2 g/dL (13.2-16.3); Lymphocyte % 5.4 %; Mean Corpuscular Hemoglobin 30.6 pg (27-33); Mean Corpuscular Hgb Conc 33.8 g/dL (31-36); Mean Corpuscular Volume 90.7 fL (80-97); Mean Platelet Volume 8.3 fL (7.5-11.2); Platelet Count 63 10^3/uL (150-450); Red Blood Count 3.65 10^6/uL (4.06-5.63); Red Cell Distribution Width 14.4 % (12-17); White Blood Count 7.6 10^3/uL (3.6-10.2)
[2023-09-25 06:18] LABS: ABS Eosinophils 0.1 10^3/uL (0.0-0.5); ABS Lymphocytes 0.6 10^3/uL (1.0-4.8); ABS Monocytes 0.6 10^3/uL (0.0-1.1); ABS Neutrophils 5.4 10^3/uL (1.5-7.6); ABS Nucleated RBC 0.01 10^3/ul; Eosinophil % 1.1 %; Hematocrit 35.4 % (38-53); Hemoglobin 12.1 g/dL (13.2-16.3); Lymphocyte % 8.6 %; Mean Corpuscular Hemoglobin 30.8 pg (27-33); Mean Corpuscular Hgb Conc 34.1 g/dL (31-36); Mean Corpuscular Volume 90.3 fL (80-97); Mean Platelet Volume 8.5 fL (7.5-11.2); Nucleated Red Blood Cells % 0.1 %/100WBC (0.0-0.8); Platelet Count 85 10^3/uL (150-450); Red Blood Count 3.92 10^6/uL (4.06-5.63); Red Cell Distribution Width 14.6 % (12-17); White Blood Count 6.7 10^3/uL (3.6-10.2)
[2023-09-26 06:37] LABS: Hematocrit 28.4 % (38-53); Hemoglobin 9.6 g/dL (13.2-16.3); Mean Corpuscular Hemoglobin 30.9 pg (27-33); Mean Corpuscular Hgb Conc 33.9 g/dL (31-36); Mean Corpuscular Volume 91.1 fL (80-97); Platelet Count 75 10^3/uL (150-450); Red Blood Count 3.11 10^6/uL (4.06-5.63); Red Cell Distribution Width 14.4 % (12-17); White Blood Count 4.2 10^3/uL (3.6-10.2)
[2023-09-26 07:03] LABS: Calcium 5.1 mg/dL (8.6-10.3); Creatinine, Serum 0.74 mg/dL (0.67-1.17); Potassium 2.9 mmol/L (3.5-5.0); eGFR CKD-EPI 87.7 (>60)
[2023-09-26 07:37] LABS: ABS Eosinophils 0.1 10^3/uL (0.0-0.5); ABS Lymphocytes 0.4 10^3/uL (1.0-4.8); ABS Monocytes 0.5 10^3/uL (0.0-1.1); ABS Neutrophils 3.1 10^3/uL (1.5-7.6); ABS Nucleated RBC 0.02 10^3/ul; Eosinophil % 1.8 %; Lymphocyte % 9.8 %; Nucleated Red Blood Cells % 0.4 %/100WBC (0.0-0.8)
[2023-09-26] MEDS: CALCIUM GLUCONATE 1GM/50ML NS 1 GM/50 ML BAG IV SCH (09:21)
[2023-09-26] MEDS: Potassium Chlor 20 meq TAB.ER PO SCH (09:21)
[2023-09-26] MEDS: Polyethylene Glycol 3350 17 GM PACKET PO SCH (10:11)
[2023-09-26 11:35] LABS: Corrected Retic Count 0.5 % (0.5-1.5); Hematocrit 33.9 % (38-53); Hematocrit for Retic CNT 33.9 % (38-53); Hemoglobin 11.4 g/dL (13.2-16.3); Immature Retic Fraction 0.34; Mean Corpuscular Hemoglobin 30.3 pg (27-33); Mean Corpuscular Hgb Conc 33.6 g/dL (31-36); Mean Corpuscular Volume 90.1 fL (80-97); Mean Platelet Volume 8.4 fL (7.5-11.2); Platelet Count 108 10^3/uL (150-450); RBC Retic Count 3.77 10^6/ul (4.06-5.63); Red Blood Count 3.77 10^6/uL (4.06-5.63); Red Cell Distribution Width 14.9 % (12-17); White Blood Count 5.3 10^3/uL (3.6-10.2)
[2023-09-26 11:51] LABS: Albumin 2.7 g/dL (3.2-5.2); Albumin/Globulin Ratio 1.4 (1-3); Calcium 7.7 mg/dL (8.6-10.3); Creatinine, Serum 0.89 mg/dL (0.67-1.17); Globulin 1.9 g/dL (2-4); Magnesium 1.8 mg/dL (1.9-2.7); Total Bilirubin 0.5 mg/dL (0.2-1.0); Total Protein 4.6 g/dL (6.4-8.9); eGFR CKD-EPI 82.9 (>60)
[2023-09-26 12:11] LABS: Ferritin 134.1 ng/mL (24-336)
[2023-09-26 12:30] LABS: ABS Eosinophils 0.1 10^3/uL (0.0-0.5); ABS Lymphocytes 0.6 10^3/uL (1.0-4.8); ABS Monocytes 0.6 10^3/uL (0.0-1.1); Eosinophil % 1.5 %; Lymphocyte % 11.4 %
[2023-09-26] MEDS: Magnesium Sulfate IV 1GM/100ML 1 GM/100 ML BAG IV ONE (19:36)
[2023-09-26 22:08] LABS: Anaplasma phagocytophilum Negative (Negative); B. miyamotoi PCR, B Negative (Negative); Babesia divergens/MO-1 Negative (Negative); Babesia ducani Negative (Negative); Ehrlichia chaffeensis Negative (Negative); Ehrlichia ewingii/canis Negative (Negative); Ehrlichia muris eauclairensis Negative (Negative)
[2023-09-27 09:25] LABS: Hematocrit 35.7 % (38-53); Hemoglobin 11.9 g/dL (13.2-16.3); Mean Corpuscular Hemoglobin 30.1 pg (27-33); Mean Corpuscular Hgb Conc 33.3 g/dL (31-36); Mean Corpuscular Volume 90.4 fL (80-97); Mean Platelet Volume 8.3 fL (7.5-11.2); Platelet Count 129 10^3/uL (150-450); Red Blood Count 3.95 10^6/uL (4.06-5.63); Red Cell Distribution Width 14.7 % (12-17); White Blood Count 6.2 10^3/uL (3.6-10.2)
[2023-09-27 09:36] LABS: Calcium 7.9 mg/dL (8.6-10.3); Creatinine, Serum 0.94 mg/dL (0.67-1.17); Potassium 4.6 mmol/L (3.5-5.0); eGFR CKD-EPI 78.5 (>60)
[2023-09-27 10:19] LABS: ABS Eosinophils 0.1 10^3/uL (0.0-0.5); ABS Lymphocytes 0.8 10^3/uL (1.0-4.8); ABS Monocytes 0.6 10^3/uL (0.0-1.1); ABS Neutrophils 4.8 10^3/uL (1.5-7.6); Eosinophil % 1.1 %; Lymphocyte % 12.4 %
[2023-09-27] MEDS: Mineral Oil ENEMA 118 ML/BOTTLE BOTTLE PR ONE (13:14)
[2023-09-28 06:12] LABS: Hematocrit 36.4 % (38-53); Hemoglobin 12.4 g/dL (13.2-16.3); Mean Corpuscular Hemoglobin 30.8 pg (27-33); Mean Corpuscular Hgb Conc 34.1 g/dL (31-36); Mean Corpuscular Volume 90.3 fL (80-97); Platelet Count 157 10^3/uL (150-450); Red Blood Count 4.03 10^6/uL (4.06-5.63); Red Cell Distribution Width 14.7 % (12-17); White Blood Count 6.2 10^3/uL (3.6-10.2)
[2023-09-28 06:58] LABS: Calcium 8.4 mg/dL (8.6-10.3); Creatinine, Serum 0.98 mg/dL (0.67-1.17); Potassium 4.5 mmol/L (3.5-5.0); eGFR CKD-EPI 74.6 (>60)
[2023-09-28 08:11] LABS: High Sensitivity Troponin 1 Hr 12 pg/mL (<20)
[2023-09-28 08:39] LABS: ABS Basophils 0.1 10^3/uL (0.0-0.1); ABS Eosinophils 0.1 10^3/uL (0.0-0.5); ABS Lymphocytes 0.7 10^3/uL (1.0-4.8); ABS Monocytes 0.5 10^3/uL (0.0-1.1); ABS Neutrophils 4.8 10^3/uL (1.5-7.6); Lymphocyte % 11.4 %; Nucleated Red Blood Cells % 0.1 %/100WBC (0.0-0.8); RBC Morphology Normal (Normal)
[2023-09-28 10:07] LABS: TSH Ultra Thyroid Stim Horm 12.97 mcIU/mL (0.34-5.60)
[2023-09-28 10:09] LABS: Free T4 1.14 ng/dL (0.61-1.12)
[2023-09-28 10:37] VITALS: BP 117/49
[2023-09-28 11:53] LABS: Rapid COVID-19 Molecular Undetected (Undetected)
== END 2023-09-28 13:15 | DRG 689 ==
LOC: ED 23:06 → EDHOLD 23:06 → SUATTDRO 09-20 06:14 → MED 09-20 08:11 → SUATTDRO 09-21 18:56
PROVIDERS: ADMIT Internal Medicine; ATTEND Internal Medicine

== ENCOUNTER 2023-10-05 10:59 | Observation (INO) ==
[2023-10-05] MEDS: Polyethylene Glycol 3350 17 GM PACKET PO PRN (12:22)
[2023-10-05 14:41] LABS: ABS Eosinophils 0.1 10^3/uL (0.0-0.5); ABS Lymphocytes 0.9 10^3/uL (1.0-4.8); ABS Monocytes 0.6 10^3/uL (0.0-1.1); ABS Neutrophils 5.9 10^3/uL (1.5-7.6); Eosinophil % 0.8 %; Hematocrit 34.6 % (38-53); Hemoglobin 11.6 g/dL (13.2-16.3); Lymphocyte % 11.8 %; Mean Corpuscular Hemoglobin 30.8 pg (27-33); Mean Corpuscular Hgb Conc 33.6 g/dL (31-36); Mean Corpuscular Volume 91.7 fL (80-97); Mean Platelet Volume 7.7 fL (7.5-11.2); Platelet Count 259 10^3/uL (150-450); Red Blood Count 3.77 10^6/uL (4.06-5.63); Red Cell Distribution Width 14.3 % (12-17); White Blood Count 7.5 10^3/uL (3.6-10.2)
[2023-10-05 15:19] LABS: Albumin 3.6 g/dL (3.2-5.2); Albumin/Globulin Ratio 1.4 (1-3); C Reactive Protein 50.01 mg/L (<8.01); Calcium 8.2 mg/dL (8.6-10.3); Creatinine, Serum 0.97 mg/dL (0.67-1.17); Globulin 2.5 g/dL (2-4); Potassium 4.4 mmol/L (3.5-5.0); Total Bilirubin 0.6 mg/dL (0.2-1.0); Total Protein 6.1 g/dL (6.4-8.9); eGFR CKD-EPI 75.6 (>60)
[2023-10-05] MEDS: Iohexol 300 (CONTRAST) 10 ML SDV IV ONE (16:17)
[2023-10-05 16:24] LABS: Urine Appearance Clear; Urine Bilirubin Negative (Negative); Urine Blood Negative (Negative); Urine Color Light-Yellow; Urine Glucose Negative (Negative); Urine Ketones Negative (Negative); Urine Nitrite Negative (Negative); Urine Protein Negative (Negative); Urine Specific Gravity 1.009 (1.002-1.030); Urine Urobilinogen Negative (Negative); Urine pH 6.5 (5.0-8.0)
[2023-10-05] MEDS: Magnesium Hydroxide LIQ 30 ML UDC PO ONE (21:28)
[2023-10-05] MEDS: Magnesium CITRATE LIQ 300 ML BTL PO ONE (21:29)
[2023-10-06] MEDS: Enoxaparin 40 MG/0.4 ML SYR SUBCUT SCH ×2 (00:28→20:05)
[2023-10-06] MEDS: PEG 3000 GI LAVAGE 1 GALLON PO ONE (01:07)
[2023-10-06] MEDS: Lactated Ringers 1000 ml BAG 1,000 ML IV SCH (01:08)
[2023-10-06 08:04] LABS: Anion Gap 10 mmol/L (2-16); Blood Urea Nitrogen 16 mg/dL (6-24); CO2 Carbon Dioxide 20 mmol/L (22-32); Chloride 107 mmol/L (101-111); Creatinine, Serum 1.02 mg/dL (0.67-1.17); Glucose 88 mg/dL (70-100); Sodium 137 mmol/L (135-145); eGFR CKD-EPI 71.1 (>60)
[2023-10-06] MEDS: Aspirin EC 81 mg TAB.EC (enteric coated) PO SCH (08:13)
[2023-10-06 09:53] LABS: ABS Basophils 0.1 10^3/uL (0.0-0.1); ABS Eosinophils 0.1 10^3/uL (0.0-0.5); ABS Lymphocytes 0.8 10^3/uL (1.0-4.8); ABS Monocytes 0.4 10^3/uL (0.0-1.1); ABS Neutrophils 4.4 10^3/uL (1.5-7.6); ABS Nucleated RBC 0.01 10^3/ul; Eosinophil % 1.2 %; Hematocrit 37.7 % (38-53); Hemoglobin 12.9 g/dL (13.2-16.3); Lymphocyte % 13.7 %; Mean Corpuscular Hemoglobin 31.1 pg (27-33); Mean Corpuscular Hgb Conc 34.2 g/dL (31-36); Mean Corpuscular Volume 91.1 fL (80-97); Mean Platelet Volume 7.7 fL (7.5-11.2); Nucleated Red Blood Cells % 0.1 %/100WBC (0.0-0.8); Platelet Count 274 10^3/uL (150-450); Red Blood Count 4.14 10^6/uL (4.06-5.63); Red Cell Distribution Width 14.6 % (12-17); White Blood Count 5.7 10^3/uL (3.6-10.2)
[2023-10-06] MEDS: Isosorbide Mononit ER 30mg TAB PO SCH ×2 (10:02→10:48)
[2023-10-06 10:22] LABS: Magnesium 2.8 mg/dL (1.9-2.7); Potassium Redraw 4.4 mmol/L (3.5-5.0)
[2023-10-06] MEDS: CMCS: Lactase Enzyme (NF) 3,000 UNIT TAB PO SCH (10:49)
[2023-10-07 05:57] LABS: Calcium 7.8 mg/dL (8.6-10.3); Creatinine, Serum 0.96 mg/dL (0.67-1.17); Magnesium 2.5 mg/dL (1.9-2.7); Potassium 4.4 mmol/L (3.5-5.0); eGFR CKD-EPI 76.5 (>60)
[2023-10-07] MEDS: Polyethylene Glycol 3350 17 GM PACKET PO SCH (10:04)
[2023-10-09 20:13] LABS: Rapid COVID-19 Molecular Undetected (Undetected)
[2023-10-11 09:09] VITALS: BP 124/51
== END 2023-10-11 12:05 ==
LOC: EDHOLD 10:59 → ED 10:59 → SUATTDRO 23:16 → MED 10-06 01:01
PROVIDERS: ADMIT Student in an Organized Health Care Education/Training Program; ATTEND Hospitalist

== ENCOUNTER 2023-12-14 08:32 | Inpatient (IN) ==
[2023-12-14 09:19] LABS: ABS Eosinophils 0.1 10^3/uL (0.0-0.5); ABS Monocytes 0.3 10^3/uL (0.0-1.1); ABS Neutrophils 2.7 10^3/uL (1.5-7.6); Eosinophil % 1.8 %; Hematocrit 36.5 % (38-53); Hemoglobin 12.3 g/dL (13.2-16.3); Lymphocyte % 25.5 %; Mean Corpuscular Hemoglobin 31.1 pg (27-33); Mean Corpuscular Hgb Conc 33.6 g/dL (31-36); Mean Corpuscular Volume 92.6 fL (80-97); Mean Platelet Volume 8.2 fL (7.5-11.2); Platelet Count 141 10^3/uL (150-450); Red Blood Count 3.94 10^6/uL (4.06-5.63); Red Cell Distribution Width 14.7 % (12-17); White Blood Count 4.1 10^3/uL (3.6-10.2)
[2023-12-14 10:03] LABS: Albumin/Globulin Ratio 2.1 (1-3); Calcium 8.8 mg/dL (8.6-10.3); Creatinine, Serum 1.11 mg/dL (0.67-1.17); Globulin 1.9 g/dL (2-4); Magnesium 2.4 mg/dL (1.9-2.7); Potassium 4.5 mmol/L (3.5-5.0); Total Bilirubin 0.5 mg/dL (0.2-1.0); Total Protein 5.9 g/dL (6.4-8.9); eGFR CKD-EPI 64.3 (>60)
[2023-12-14 11:11] LABS: High Sensitivity Troponin 1 Hr 6 pg/mL (<20)
[2023-12-14 11:30] LABS: TSH Ultra Thyroid Stim Horm 0.86 mcIU/mL (0.34-5.60)
[2023-12-14 11:32] LABS: Free T4 0.91 ng/dL (0.61-1.12)
[2023-12-14] MEDS: Enoxaparin 40 MG/0.4 ML SYR SUBCUT SCH (17:20)
[2023-12-14] MEDS: CMC:Lactase Enzyme (NF) 3,000 UNIT TAB PO SCH (17:23)
[2023-12-15] MEDS: NS 0.45% 1000 ml BAG 1,000 ML IV SCH (00:20)
[2023-12-15] MEDS: Aspirin EC 81 mg TAB.EC (enteric coated) PO SCH (09:50)
[2023-12-15] MEDS: Isosorbide Mononit ER 30mg TAB PO SCH (09:50)
[2023-12-15] MEDS: NS 0.9% 1000 ml BAG 1,000 ML IV SCH (13:03)
[2023-12-15] MEDS: ceFAZolin 2 GM PREMIX 2 GM/50 ML BAG IVPB ONE (14:15)
[2023-12-15] MEDS ORDERED: fentaNYL 100 mcg/2 ml 50 MCG/ML VIAL ONE (14:25)
[2023-12-15] MEDS ORDERED: Midazolam 5 mg/5 ml VIAL 1 mg/ml 5 ml VIAL (5 mg) ONE (14:25)
[2023-12-15] MEDS ORDERED: Lidocaine 1% VIAL 10 MG/ML 30 ML VIAL ONE (14:25)
[2023-12-15] MEDS ORDERED: Iohexol 300 (CONTRAST) 10 ML SDV ONE (14:26)
[2023-12-15 17:27] LABS: Urine Appearance Clear; Urine Bilirubin Negative (Negative); Urine Blood Negative (Negative); Urine Color Light-Yellow; Urine Glucose Negative (Negative); Urine Ketones Negative (Negative); Urine Nitrite Negative (Negative); Urine Protein Negative (Negative); Urine Specific Gravity 1.013 (1.002-1.030); Urine Urobilinogen Negative (Negative)
[2023-12-15 17:41] LABS: Urine Bacteria 1+ /HPF (Absent); Urine Red Blood Cell Trace(0-2/hpf) /HPF (0-Trace); Urine White Blood Cell 1+(6-10/hpf) /HPF (0-Trace)
[2023-12-15] MEDS: ceFAZolin VIAL 1 GM in NS 0.9% 50 ML 50 ML IVPB SCH (23:02)
[2023-12-16] MEDS: Polyethylene Glycol 3350 17 GM PACKET PO SCH (08:39)
[2023-12-17] MEDS: Amoxicillin/Clavul 875/125 TAB (Augmentin 875 tab) PO SCH (20:59)
[2023-12-18] MEDS: Dextran 70/Hypromellose Tears Eye Drops 15 ml BTL (for Artificials Tears) BOTH EYES PRN (14:15)
[2023-12-19 14:04] VITALS: BP 108/61
== END 2023-12-19 15:50 | DRG 243 ==
LOC: ED 08:32 → EDHOLD 08:32 → SUATTDRO 10:55 → MEDTELE 14:09 → SUATTDRO 12-15 09:00
PROVIDERS: ADMIT Hospitalist; ATTEND Internal Medicine